=== PATIENT | female | born 1960 | race American Indian/Alaskan Native ===

== ENCOUNTER 2020-06-07 15:11 | Emergency (ER) | payer MEDICARE, MEDICAID ==
[2020-06-07 20:09] VITALS: BP 144/83
== END 2020-06-07 20:06 | disposition left against medical advice (07) ==
LOC: ED 15:11
DX: R06.02 Shortness of breath (principal); Z53.21 Procedure and treatment not carried out due to patient leaving prior to being seen by health care provider

== ENCOUNTER 2020-09-08 15:22 | Inpatient (IN) | payer MEDICARE ==
--- NOTE | 2020-09-08 15:45 | Event Note ---
ED Screening Note Date of service: 09/08/20 Time: 15:39 ED Screening Note: 60-year-old -[place] female presents to the emergency room complaining of abdominal pain x2 days nausea right lower quadrant back pain chills. Patient was recently seen here on 08/25/2020 07/20/1820 for small bowel obstruction with postop adhesions lysis. Past medical history of A. fib, CHF, hypertension, diabetes. This initial assessment/diagnostic orders/clinical plan/treatment(s) is/are subject to change based on patients health status, clinical progression and re- assessment by fellow clinical providers in the ED. Further treatment and workup at subsequent clinical providers discretion. Patient/guardian urged not to elope from the ED as their condition may be serious if not clinically assessed and managed. Initial orders include:
[2020-09-08 16:33] LABS: Basophils # (Auto) 0.1 K/mm3 (0.0-0.1); Basophils % (Auto) 0.8 % (0.0-1.8); Eosinophils # (Auto) 0.1 K/mm3 (0.0-0.4); Eosinophils % (Auto) 1.4 % (0.0-4.3); Hematocrit 43.9 % (30.3-42.9); Hemoglobin 14.5 gm/dl (10.1-14.3); Lymphocytes # (Auto) 1.1 K/mm3 (1.2-5.4); Lymphocytes % (Auto) 14.9 % (13.4-35.0); Mean Corpuscular HGB Conc 33 % (30-34); Mean Corpuscular Volume 92 fl (79-97); Monocytes # (Auto) 0.7 K/mm3 (0.0-0.8); Monocytes % (Auto) 9.7 % (0.0-7.3); Platelet Count 244 K/mm3 (140-440); Red Blood Count 4.75 M/mm3 (3.65-5.03); Red Cell Distribution Width 17.9 % (13.2-15.2)
[2020-09-08 16:41] LABS: Albumin 3.3 g/dL (3.9-5); Calcium 10.2 mg/dL (8.4-10.2)
[2020-09-08 16:43] LABS: INR 2.05 (0.87-1.13)
[2020-09-08 16:44] LABS: Partial Thromboplastin Time 34.3 Sec. (24.2-36.6)
--- NOTE | 2020-09-08 17:09 | Emergency Department Report ---
ED Abdominal Pain HPI - General Chief Complaint: Abdominal Pain Stated Complaint: PROBLEMS FROM SURGERY PUI?: No Time Seen by Provider: 09/08/20 17:01 Source: patient, RN/MD, RN notes reviewed, old records reviewed Mode of arrival: Wheelchair Limitations: Physical Limitation - History of Present Illness Initial Comments: Patient is a 60-year-old female that presents emergency room complaint abdominal pain. Patient dates her abdominal pain started 2 days ago. Patient states she had a generalized abdominal pain that is radiating to her back. Patient states she is also having nausea, vomiting, chills, body aches. Patient states she was here on 23 August for small bowel obstruction had surgery. Patient states she was discharged on the . Patient states that her pain is a 10 out of 10. Patient dates her pain is better with rest and worse with movement and palpation. Patient denies chest pain or shortness of breath. Patient denies recent travel. Patient denies recent international travel. Patient denies exposure to the novel coronavirus. Patient denies sick contacts. Patient denies cough. Patient denies diarrhea. Patient denies coming in contact with anybody with symptoms of the novel coronavirus. Patient states she has a history of COPD, congestive heart failure, diabetes, CAD, [place], HIV, hypertension. The surgeon to perform the surgery was Dr. Mora. Complaint: abdominal pain -: Sudden Location: diffuse Radiation: back Migration to: no migration Severity: severe Severity scale (0 -10): 10 Consistency: constant Improves With: rest Worsens With: movement Associated Symptoms: nausea, vomiting, chills. denies: diarrhea, constipation, dysuria, hematemesis, hematochezia, melena, hematuria, anorexia, syncope - Related Data Home Medications Medication Instructions Recorded Confirmed Last Taken Furosemide [Lasix] 40 mg PO BID 05/07/13 05/07/13 Unknown Gabapentin 300 mg PO 05/07/13 05/07/13 Unknown Insulin Glargine,Hum.rec.anlog 10 unit SQ QHS 05/07/13 05/07/13 Unknown [Lantus Solostar] Lopinavir/Ritonavir (Nf) [Kaletra 1 each PO BID 05/07/13 05/07/13 Unknown 200-50 mg (Nf)] Potassium 20 meq PO BID 05/07/13 05/07/13 Unknown Raltegravir Potassium [Isentress] 400 mg PO BID 05/07/13 05/07/13 Unknown Tenofovir Disoproxil Fumarate 300 mg PO QDAY 05/07/13 05/07/13 Unknown [Viread] Previous Rx's Medication Instructions Recorded Last Taken Type Hydrocodone Bit/Acetaminophen 1 - 2 each PO Q4-6H PRN #15 tablet 05/08/13 Unknown Rx [Lortab 5-500 Tablet] Digoxin [Lanoxin] 0.125 mg PO DAILY #30 09/01/20 Unknown Rx Rivaroxaban [Xarelto] 20 mg PO QDAY #30 tab 09/01/20 Unknown Rx amLODIPine 5 mg PO BID #60 09/01/20 Unknown Rx carvediloL [Coreg] 12.5 mg PO BID #60 tablet 09/01/20 Unknown Rx cloNIDine [Catapres] 0.1 mg PO BID #60 09/01/20 Unknown Rx oxyCODONE /ACETAMINOPHEN [Percocet 1 tab PO Q6H PRN #12 tablet 09/01/20 Unknown Rx 5/325 mg] Allergies Allergy/AdvReac Type Severity Reaction Status Date / Time No Known Allergies Allergy Verified 09/08/20 15:27 ED Review of Systems ROS: Stated complaint: PROBLEMS FROM SURGERY Other details as noted in HPI Constitutional: see HPI, chills. denies: fever Eyes: denies: eye pain, eye discharge, vision change ENT: denies: ear pain, throat pain Respiratory: denies: cough, shortness of breath, wheezing Cardiovascular: denies: chest pain, palpitations Endocrine: no symptoms reported Gastrointestinal: as per HPI, abdominal pain, nausea, vomiting. denies: diarrhea Genitourinary: denies: urgency, dysuria, discharge Musculoskeletal: denies: back pain, joint swelling, arthralgia Skin: denies: rash, lesions Neurological: denies: headache, weakness, paresthesias Psychiatric: denies: anxiety, depression Hematological/Lymphatic: denies: easy bleeding, easy bruising ED Past Medical Hx - Past Medical History Previous Medical History?: Yes Hx Hypertension: Yes Hx Heart Attack/AMI: Yes (~2006) Hx Congestive Heart Failure: Yes Hx Diabetes: Yes Hx Liver Disease: No Hx Renal Disease: Yes (worsening LA) Hx COPD: Yes (no exacerbation in >10yrs) Hx HIV: Yes Additional medical history: heart disease , HIV, atrial fibrillation - Surgical History Past Surgical History?: Yes Hx Pacemaker: Yes Hx Internal Defibrillator: Yes (denies hx of defibrillator shocks, battery changed within the last 10yrs) Hx Appendectomy: Yes Additional Surgical History: , tubal ligation, vaginal surgery/rectal surgery AIC - Family History Family history: no significant - Social History Smoking Status: Never Smoker Substance Use Type: None - Medications Home Medications: Home Medications Medication Instructions Recorded Confirmed Last Taken Type Furosemide [Lasix] 40 mg PO BID 05/07/13 05/07/13 Unknown History Gabapentin 300 mg PO 05/07/13 05/07/13 Unknown History Insulin Glargine,Hum.rec.anlog 10 unit SQ QHS 05/07/13 05/07/13 Unknown History [Lantus Solostar] Lopinavir/Ritonavir (Nf) [Kaletra 1 each PO BID 05/07/13 05/07/13 Unknown Hist ory 200-50 mg (Nf)] Potassium 20 meq PO BID 05/07/13 05/07/13 Unknown History Raltegravir Potassium [Isentress] 400 mg PO BID 05/07/13 05/07/13 Unknown History Tenofovir Disoproxil Fumarate 300 mg PO QDAY 05/07/13 05/07/13 Unknown History [Viread] Hydrocodone Bit/Acetaminophen 1 - 2 each PO Q4-6H PRN #15 tablet 05/08/13 Unknown Rx [Lortab 5-500 Tablet] Digoxin [Lanoxin] 0.125 mg PO DAILY #30 09/01/20 Unknown Rx Rivaroxaban [Xarelto] 20 mg PO QDAY #30 tab 09/01/20 Unknown Rx amLODIPine 5 mg PO BID #60 09/01/20 Unknown Rx carvediloL [Coreg] 12.5 mg PO BID #60 tablet 09/01/20 Unknown Rx cloNIDine [Catapres] 0.1 mg PO BID #60 09/01/20 Unknown Rx oxyCODONE /ACETAMINOPHEN [Percocet 1 tab PO Q6H PRN #12 tablet 09/01/20 Unknown Rx 5/325 mg] ED Physical Exam - General Limitations: Physical Limitation General appearance: alert, in no apparent distress - Head Head exam: Present: atraumatic, normocephalic - Eye Eye exam: Present: normal appearance - ENT ENT exam: Present: mucous membranes moist - Neck Neck exam: Present: normal inspection - Respiratory Respiratory exam: Present: normal lung sounds bilaterally. Absent: respiratory distress - Cardiovascular Cardiovascular Exam: Present: regular rate, normal rhythm. Absent: systolic murmur, diastolic murmur, rubs, gallop - GI/Abdominal GI/Abdominal exam: Present: soft, tenderness (Generalized abdominal tenderness to palpation.), normal bowel sounds, other (Midline surgical incision noted with harper and a purulent discharge to the inferior aspect.) - Extremities Exam Extremities exam: Present: normal inspection - Back Exam Back exam: Present: normal inspection - Neurological Exam Neurological exam: Present: alert, oriented X3 - Psychiatric Psychiatric exam: Present: normal affect, normal mood - Skin Skin exam: Present: warm, dry, intact, normal color. Absent: rash ED Course Vital Signs 09/08/20 09/08/20 15:27 18:00 Temperature 98.0 F 98.4 F Pulse Rate 92 H Respiratory 20 20 Rate Blood Pressure 130/78 Blood Pressure 126/75 [Left] O2 Sat by Pulse 99 98 Oximetry - Reevaluation(s) Reevaluation #1: Patient states the pain is better. Patient denies nausea 09/08/20 18:15 Reevaluation #2: I discussed all results with patient. I discussed plan of care with patient. Patient agrees with plan of care and admission. Patient to be admitted to the hospitalist service. 09/08/20 18:45 - Consultations Consultation #1: Hospitalist consulted for admission. Hospitalist to admit patient. 09/08/20 18:45 Consultation #2: I discussed case with surgery on-call, Dr. Guevara. Dr. Guevara wants patient to be admitted to the hospital service, n.p.o. and NG placed. 09/08/20 19:05 ED Medical Decision Making - Lab Data Result diagrams: 09/08/20 15:46 09/08/20 15:46 - Radiology Data Radiology results: report reviewed CT ABDOMEN AND PELVIS WITH CONTRAST INDICATION / CLINICAL INFORMATION: abd pain. recent surgery. chills.. TECHNIQUE: Axial CT images were obtained through the abdomen and pelvis after IV contrast. All CT scans at this location are performed using CT dose reduction for ALARA by means of automated exposure control. COMPARISON: 08/24/2020 compared. FINDINGS: LOWER CHEST: Pericardial effusion. Cardiac enlargement LIVER: No significant abnormality. GALLBLADDER: No significant abnormality. BILE DUCTS: No significant abnormality. PANCREAS: No significant abnormality. SPLEEN: Low density lesion developing within the spleen measuring 3.35 cm. ADRENALS: No significant abnormality. RIGHT KIDNEY and URETER: No significant abnormality. LEFT KIDNEY and URETER: No significant abnormality. STOMACH and SMALL BOWEL: Multiple dilated loops of small bowel are noted. COLON: No significant abnormality. APPENDIX: Not identified PERITONEUM: Small amount of free fluid present LYMPH NODES: No significant adenopathy. AORTA and ARTERIES: No significant abnormality. IVC and VEINS: No significant abnormality. URINARY BLADDER: No significant abnormality. REPRODUCTIVE ORGANS: No significant abnormality. ADDITIONAL FINDINGS: Surgical changes present anterior abdominal wall SKELETAL SYSTEM: No significant abnormality. IMPRESSION: 1. Abnormal appearance of the small bowel consistent with small bowel obstruction. 2. Low density lesion developing within the spleen etiology unclear, abscess should be considered 3. Pericardial effusion 4. Small amount of ascites - Medical Decision Making Patient is a 60-year-old female that presents emergency with complaints of abdominal pain, nausea, vomiting, fever, chills. Patient had a recent surgery for a small bowel obstruction. Patient has an anterior surgical site with harper. Patient had labs done which were essentially markable for renal insufficiency. Patient had a CT scan of the abdomen which showed a recurrent small bowel obstruction and an abscess formation. I discussed the case with the surgeon that did the surgery and he is currently being covered by Dr. Guevara, general surgery. I discussed the case with Dr. Sepulveda and Dr. Guevara wants the patient admitted to the hospital service, n.p.o. and NG placed. Patient admitted to the hospital service for further evaluation and treatment. Patient given IV fluids, IV Dilaudid and Zofran. Patient responded well and the pain improved after the Dilaudid. Patient then given Zosyn for antibiotic coverage. Critical care time documented due to the multiple reassessments, prolonged time at the bedside, interpretation of diagnostics and labs and discussion with c onsultants.. - Differential Diagnosis sbo, fever, abd pain, n/v. Critical Care Time: Yes Critical care time in (mins) excluding proc time.: 35 Critical care attestation.: If time is entered above; I have spent that time in minutes in the direct care of this critically ill patient, excluding procedure time. Critical Care Time: 35 minutes ED Disposition Clinical Impression: Chills, Intra-abdominal abscess post-procedure, Renal insufficiency, Small bowel obstruction Abdominal pain Qualifiers: Abdominal location: generalized Qualified Code(s): R10.84 - Generalized abdominal pain Fever Qualifiers: Fever type: unspecified Qualified Code(s): R50.9 - Fever, unspecified Disposition: DC-09 OP ADMIT IP TO THIS HOSP Is pt being admited?: Yes Does the pt Need Aspirin: No Condition: Critical Instructions: Abdominal Pain (ED) Time of Disposition: 19:11
[2020-09-08] MEDS ORDERED: SODIUM CHLORIDE 0.9% 500 ML 500 ML IV ONE (17:10)
[2020-09-08] MEDS ORDERED: ONDANSETRON 4 MG/2 ML INJ IV ONE (17:27)
[2020-09-08] MEDS ORDERED: HYDROmorphone 1 MG/1 ML INJ IV ONE (17:27)
--- NOTE | 2020-09-08 18:39 | Cat Scan Report ---
CT ABDOMEN AND PELVIS WITH CONTRAST INDICATION / CLINICAL INFORMATION: abd pain. recent surgery. chills.. TECHNIQUE: Axial CT images were obtained through the abdomen and pelvis after IV contrast. All CT scans at this location are performed using CT dose reduction for ALARA by means of automated exposure control. COMPARISON: 08/24/2020 compared. FINDINGS: LOWER CHEST: Pericardial effusion. Cardiac enlargement LIVER: No significant abnormality. GALLBLADDER: No significant abnormality. BILE DUCTS: No significant abnormality. PANCREAS: No significant abnormality. SPLEEN: Low density lesion developing within the spleen measuring 3.35 cm. ADRENALS: No significant abnormality. RIGHT KIDNEY and URETER: No significant abnormality. LEFT KIDNEY and URETER: No significant abnormality. STOMACH and SMALL BOWEL: Multiple dilated loops of small bowel are noted. COLON: No significant abnormality. APPENDIX: Not identified PERITONEUM: Small amount of free fluid present LYMPH NODES: No significant adenopathy. AORTA and ARTERIES: No significant abnormality. IVC and VEINS: No significant abnormality. URINARY BLADDER: No significant abnormality. REPRODUCTIVE ORGANS: No significant abnormality. ADDITIONAL FINDINGS: Surgical changes present anterior abdominal wall SKELETAL SYSTEM: No significant abnormality. IMPRESSION: 1. Abnormal appearance of the small bowel consistent with small bowel obstruction. 2. Low density lesion developing within the spleen etiology unclear, abscess should be considered 3. Pericardial effusion 4. Small amount of ascites Signer Name: Derrick Ferreira MD Signed: 09/08/2020 6:35 PM Workstation Name: [id number]
[2020-09-08] MEDS ORDERED: PIPERACIL/TAZOBACTA 4.5/NS 100 4.5 GM/100 ML VIAL IV ONE (18:43)
[2020-09-08 20:37] LABS: Bilirubin,Urine NEG (Negative); Blood,Urine NEG (Negative); Color,Urine Yellow (Yellow); Mucus,Urine FEW /HPF; Protein,Urine <15 mg/dL mg/dL (Negative); RBC,Urine < 1.0 /HPF (0.0-6.0); Urobilinogen,Urine < 2.0 mg/dL (<2.0); WBC,Urine < 1.0 /HPF (0.0-6.0)
--- NOTE | 2020-09-08 22:24 | XRay Report ---
ABDOMEN 1 VIEW 09/08/2020 9:04 PM INDICATION / CLINICAL INFORMATION: ng placement. COMPARISON: CT abdomen pelvis 09/08/2020 and abdominal radiograph 08/31/2020 FINDINGS: TUBES / LINES: Gastric tube crosses the gastroesophageal junction and terminates in the left upper qu adrant. Satisfactory appearance. Satisfactory appearance of the visualized left-sided pacing device. BOWEL GAS PATTERN: No significant abnormality. FREE AIR / EXTRALUMINAL GAS: None. ADDITIONAL FINDINGS: No significant additional findings. IMPRESSION: 1. Satisfactory appearance of the gastric tube. Signer Name: Tristen Fang MD Signed: 09/08/2020 10:20 PM Workstation Name: [id number]
[2020-09-09] MEDS ORDERED: METOCLOPRAMIDE 10 MG/2 ML INJ IV PRN (01:27)
[2020-09-09] MEDS ORDERED: ACETAMINOPHEN 325 MG TAB PO PRN (01:27)
[2020-09-09] MEDS ORDERED: SODIUM CHLORIDE 0.9% 1000 ML 1,000 ML IV SCH (01:30)
--- NOTE | 2020-09-09 01:34 | History and Physical Report ---
History of Present Illness Date of examination: 09/08/20 Date of admission: 09/08/20 19:11 Chief complaint: Abdominal pain for 3 days History of present illness: 60-year-old female recently admitted for small bowel obstruction discharged 1 week ago started having pain in the abdomen 3 days. Patient has been on clear liquids with 7 days. Pain worsens with drinking fluids. No vomiting present. Patient was discharged on the . Patient needs it 10 out of 10. Diffuse all over the abdomen. 41 exacerbating factor. Not eating anything or relieving factors. Pain is intermittent in nature. Patient has a history of HIV and diabetes and hypertension. No fever or chills. No exposure to coronavirus. - Past Medical History Previous Medical History?: Yes -- Hypertension: Yes --Heart Attack/AMI: Yes (~2006) --Congestive Heart Failure: Yes --Diabetes: Yes -- COPD: Yes --HIV: Yes Additional medical history: heart disease , HIV, atrial fibrillation - Surgical History Past Surgical History?: Yes --Pacemaker: Yes --Internal Defibrillator: Yes (denies hx of defibrillator shocks, battery changed within the last 10yrs) --Appendectomy: Yes Additional Surgical History: , tubal ligation, vaginal surgery/rectal surgery 2008, AICD - Family History Family history: no significant - Social History Smoking Status: Never Smoker Substance Use Type: None Review of Systems ROS: Stated complaint: PROBLEMS FROM SURGERY Other details as noted in HPI Constitutional: see HPI, chills. denies: fever Eyes: denies: eye pain, eye discharge, vision change ENT: denies: ear pain, throat pain Respiratory: denies: cough, shortness of breath, wheezing Cardiovascular: denies: chest pain, palpitations Endocrine: no symptoms reported Gastrointestinal: as per HPI, abdominal pain, nausea, vomiting. denies: diarrhea Genitourinary: denies: urgency, dysuria, discharge Musculoskeletal: denies: back pain, joint swelling, arthralgia Skin: denies: rash, lesions Neurological: denies: headache, weakness, paresthesias Psychiatric: denies: anxiety, depression Hematological/Lymphatic: denies: easy bleeding, easy bruising Medications and Allergies Allergies Allergy/AdvReac Type Severity Reaction Status Date / Time No Known Allergies Allergy Verified 09/08/20 15:27 Home Medications Medication Instructions Recorded Confirmed Last Taken Type Furosemide [Lasix] 40 mg PO BID 05/07/13 05/07/13 Unknown History Gabapentin 300 mg PO 05/07/13 05/07/13 Unknown History Insulin Glargine,Hum.rec.anlog 10 unit SQ QHS 05/07/13 05/07/13 Unknown History [Lantus Solostar] Lopinavir/Ritonavir (Nf) [Kaletra 1 each PO BID 05/07/13 05/07/13 Unknown History 200-50 mg (Nf)] Potassium 20 meq PO BID 05/07/13 05/07/13 Unknown History Raltegravir Potassium [Isentress] 400 mg PO BID 05/07/13 05/07/13 Unknown History Tenofovir Disoproxil Fumarate 300 mg PO QDAY 05/07/13 05/07/13 Unknown History [Viread] Hydrocodone Bit/Acetaminophen 1 - 2 each PO Q4-6H PRN #15 tablet 05/08/13 Unknown Rx [Lortab 5-500 Tablet] Digoxin [Lanoxin] 0.125 mg PO DAILY #30 09/01/20 Unknown Rx Rivaroxaban [Xarelto] 20 mg PO QDAY #30 tab 09/01/20 Unknown Rx amLODIPine 5 mg PO BID #60 09/01/20 Unknown Rx carvediloL [Coreg] 12.5 mg PO BID #60 tablet 09/01/20 Unknown Rx cloNIDine [Catapres] 0.1 mg PO BID #60 09/01/20 Unknown Rx oxyCODONE /ACETAMINOPHEN [Percocet 1 tab PO Q6H PRN #12 tablet 09/01/20 Unknown Rx 5/325 mg] Exam - Constitutional Vitals: Temp Pulse Resp BP Pulse Ox 98.4 F 85 20 118/58 98 09/08/20 18:00 09/09/20 00:23 09/09/20 00:23 09/09/20 00:23 09/09/20 00:23 General appearance: Present: no acute distress, well-nourished - EENT Eyes: Present: PERRL ENT: hearing intact, clear oral mucosa - Neck Neck: Present: supple, normal ROM - Respiratory Respiratory effort: normal Respiratory: bilateral: CTA - Cardiovascular Heart rate: 78 Rhythm: regular Heart Sounds: Present: S1 & S2. Absent: rub, click - Extremities Extremities: pulses symmetrical, No edema Peripheral Pulses: within normal limits - Abdominal General gastrointestinal: Present: soft, non-tender, distended, absent bowel sounds Localized gastrointestinal: tender: diffuse Female genitourinary: Present: normal - Rectal Rectal Exam: deferred - Integumentary Integumentary: Present: clear, warm, dry - Musculoskeletal Musculoskeletal: gait normal, strength equal bilaterally - Psychiatric Psychiatric: appropriate mood/affect, intact judgment & insight - Neurologic Neurologic: CNII-XII intact, moves all extremities - Allied Health Allied health notes reviewed: nursing, case management Results - Labs CBC & Chem 7: 09/09/20 05:02 09/08/20 15:46 Labs: Laboratory Last Values WBC 7.4 K/mm3 (4.5-11.0) 09/08/20 15:46 RBC 4.75 M/mm3 (3.65-5.03) 09/08/20 15:46 Hgb 14.5 gm/dl (10.1-14.3) H 09/08/20 15:46 Hct 43.9 % (30.3-42.9) H 09/08/20 15:46 MCV 92 fl (79-97) 09/08/20 15:46 MCH 31 pg (28-32) 09/08/20 15:46 MCHC 33 % (30-34) 09/08/20 15:46 RDW 17.9 % (13.2-15.2) H 09/08/20 15:46 Plt Count 244 K/mm3 (140-440) 09/08/20 15:46 Lymph % (Auto) 14.9 % (13.4-35.0) 09/08/20 15:46 [place] % (Auto) 9.7 % (0.0-7.3) H 09/08/20 15:46 Eos % (Auto) 1.4 % (0.0-4.3) 09/08/20 15:46 Baso % (Auto) 0.8 % (0.0-1.8) 09/08/20 15:46 Lymph # (Auto) 1.1 K/mm3 (1.2-5.4) L 09/08/20 15:46 [place] # (Auto) 0.7 K/mm3 (0.0-0.8) 09/08/20 15:46 Eos # (Auto) 0.1 K/mm3 (0.0-0.4) 09/08/20 15:46 Baso # (Auto) 0.1 K/mm3 (0.0-0.1) 09/08/20 15:46 Seg Neutrophils % 73.2 % (40.0-70.0) H 09/08/20 15:46 Seg Neutrophils # 5.4 K/mm3 (1.8-7.7) 09/08/20 15:46 PT 23.3 Sec. (12.2-14.9) H 09/08/20 15:46 INR 2.05 (0.87-1.13) H 09/08/20 15:46 APTT 34.3 Sec. (24.2-36.6) 09/08/20 15:46 Sodium 142 mmol/L (137-145) 09/08/20 15:46 Potassium 4.2 mmol/L (3.6-5.0) 09/08/20 15:46 Chloride 98.2 mmol/L (98-107) 09/08/20 15:46 Carbon Dioxide 36 mmol/L (22-30) H 09/08/20 15:46 Anion Gap 12 mmol/L 09/08/20 15:46 BUN 21 mg/dL (7-17) H 09/08/20 15:46 Creatinine 1.4 mg/dL (0.6-1.2) H 09/08/20 15:46 Estimated GFR 47 ml/min 09/08/20 15:46 BUN/Creatinine Ratio 15 % 09/08/20 15:46 Glucose 193 mg/dL (65-100) H 09/08/20 15:46 Lactic Acid 1.20 mmol/L (0.7-2.0) 09/08/20 15:46 Calcium 10.2 mg/dL (8.4-10.2) 09/08/20 15:46 Phosphorus 3.10 mg/dL (2.5-4.5) 09/08/20 15:46 Magnesium 1.50 mg/dL (1.7-2.3) L 09/08/20 15:46 Total Bilirubin 1.10 mg/dL (0.1-1.2) 09/08/20 15:46 AST 16 units/L (5-40) 09/08/20 15:46 ALT 9 units/L (7-56) 09/08/20 15:46 Alkaline Phosphatase 124 units/L (35-129) 09/08/20 15:46 Total Protein 7.7 g/dL (6.3-8.2) 09/08/20 15:46 Albumin 3.3 g/dL (3.9-5) L 09/08/20 15:46 Albumin/Globulin Ratio 0.8 % 09/08/20 15:46 Lipase 36 units/L (13-60) 09/08/20 15:46 Urine Color Yellow (Yellow) 09/08/20 20:02 Urine Turbidity Clear (Clear) 09/08/20 20:02 Urine pH 5.0 (5.0-7.0) 09/08/20 20:02 Ur Specific [place] 1.020 (1.003-1.030) 09/08/20 20:02 Urine Protein <15 mg/dl mg/dL (Negative) 09/08/20 20:02 Urine Glucose (UA) Neg mg/dL (Negative) 09/08/20 20:02 Urine Ketones Neg mg/dL (Negative) 09/08/20 20:02 Urine Blood Neg (Negative) 09/08/20 20:02 Urine Nitrite Neg (Negative) 09/08/20 20:02 Urine Bilirubin Neg (Negative) 09/08/20 20:02 Urine Urobilinogen < 2.0 mg/dL (<2.0) 09/08/20 20:02 Ur Leukocyte Esterase Neg (Negative) 09/08/20 20:02 Urine WBC (Auto) < 1.0 /HPF (0.0-6.0) 09/08/20 20:02 Urine RBC (Auto) < 1.0 /HPF (0.0-6.0) 09/08/20 20:02 U Epithel Cells (Auto) < 1.0 /HPF (0-13.0) 09/08/20 20:02 Urine Mucus Few /HPF 09/08/20 20:02 - Imaging and Cardiology Imaging and Cardiology: Abdominal CAT scan IMPRESSION: 1. Abnormal appearance of the small bowel consistent with small bowel obstruction. 2. Low density lesion developing within the spleen etiology unclear, abscess should be considered 3. Pericardial effusion 4. Small amount of ascites Assessment and Plan Advance Directives: Yes (Full code) VTE prophylaxis?: Chemical Plan of care discussed with patient/family: Yes - Patient Problems (1) Small bowel obstruction Current Visit: Yes Status: Acute Plan to address problem: N.p.o. for now NG tube for low Gomco suction Surgery consult requested (2) LA (acute kidney injury) Current Visit: No Status: Acute Plan to address problem: IV fluids for now and recheck creatinine (3) HIV (human immunodeficiency virus infection) Current Visit: Yes Status: Chronic Qualifiers: HIV symptom status: unspecified Qualified Code(s): B20 - Human immunodeficiency virus [HIV] disease Plan to address problem: Hold antiretrovirals for now (4) Hypertension Current Visit: No Status: Chronic Qualifiers: Hypertension type: essential hypertension Qualified Code(s): I10 - Essential (primary) hypertension Plan to address problem: Patient initiated on Catapres patch TTS 3 q. weekly (5) IDDM (insulin dependent diabetes mellitus) Current Visit: No Status: Chronic Plan to address problem: Coverage of insulin for now (6) DVT prophylaxis Current Visit: Yes Status: Acute Plan to address problem: On heparin and GI prophylaxis
[2020-09-09] MEDS ORDERED: cloNIDine TTS 0.3 MG/24 HR PATCH TD SCH (02:00)
[2020-09-09] MEDS: HYDROmorphone 1 MG/1 ML INJ IV PRN ×2 (02:13→22:00)
[2020-09-09] MEDS: ONDANSETRON 4 MG/2 ML INJ IV PRN (02:14)
[2020-09-09] MEDS: PIPERACIL/TAZOBACTA 4.5/NS 100 4.5 GM/100 ML VIAL IV SCH ×3 (04:38→20:00)
[2020-09-09] MEDS: MORPHINE 2 MG/1 ML INJ IV PRN (06:04)
[2020-09-09 07:34] LABS: Hemoglobin 13.3 gm/dl (10.1-14.3); Mean Corpuscular Volume 92 fl (79-97); Red Blood Count 4.36 M/mm3 (3.65-5.03)
[2020-09-09 07:35] LABS: Basophils % (Auto) 0.7 % (0.0-1.8); Eosinophils # (Auto) 0.1 K/mm3 (0.0-0.4); Eosinophils % (Auto) 1.5 % (0.0-4.3); Lymphocytes # (Auto) 1.1 K/mm3 (1.2-5.4); Lymphocytes % (Auto) 15.9 % (13.4-35.0); Mean Corpuscular HGB Conc 33 % (30-34); Monocytes # (Auto) 0.6 K/mm3 (0.0-0.8); Monocytes % (Auto) 8.7 % (0.0-7.3); Platelet Count 228 K/mm3 (140-440); Red Cell Distribution Width 17.6 % (13.2-15.2)
--- NOTE | 2020-09-09 08:51 | Progress Note ---
Assessment and Plan Assessment and plan: -- Small bowel obstruction Current Visit: Yes Status: Acute Plan to address problem: N.p.o. status, low intermittent suction IV fluids, supportive care Surgery evaluated the patient --LA (acute kidney injury) Current Visit: No Status: Acute Plan to address problem: Vasomotor nephropathy , gentle IV hydration Monitor renal function, avoid nephrotoxins --History of HIV (human immunodeficiency virus infection) Current Visit: Yes Status: Chronic Plan to address problem: Hold antiretrovirals for now ID consult if needed -- Hypertension Current Visit: No Status: Chronic Plan to address problem: Patient initiated on Catapres patch TTS 3 q. weekly Closely monitor blood pressures Continue current antihypertensives and as needed hydralazine --Type II IDDM (insulin dependent diabetes mellitus) Current Visit: No Status: Chronic Plan to address problem: Accu-Chek sliding scale coverage Patient is n.p.o. status, ADA diet when able to take oral Check A1c --Morbid obesity ; BMI 41.6 Current Visit: No Status: Chronic. Plan to address problem: Patient needs dietary modification, exercise as tolerated, lifestyle changes, and weight reduction when medically stable DVT prophylaxis Current Visit: Yes Status: Acute Plan to address problem: On heparin and GI prophylaxis 09/09/2020; small bowel obstruction, n.p.o. status NG tube placement, intermittent suction, supportive care History Interval history: I seen and examined the patient at the bedside Patient's chart and medications reviewed Patient was admitted with small bowel obstruction Has [place] with intermittent suction Surgery evaluated the patient Vital signs noted Hospitalist Physical - Constitutional Vitals: Temp Pulse Resp BP Pulse Ox 98.2 F 79 16 116/79 94 09/09/20 07:05 09/09/20 07:05 09/09/20 07:05 09/09/20 07:05 09/09/20 07:05 General appearance: Present: no acute distress, well-nourished - EENT Eyes: Present: PERRL, EOM intact - Neck Neck: Present: supple, normal ROM - Respiratory Respiratory effort: normal, labored Respiratory: bilateral: diminished, negative: rales, rhonchi, wheezing - Cardiovascular Rhythm: regular Heart Sounds: Present: S1 & S2 - Extremities Extremities: no ischemia Extremity abnormal: edema - Abdominal General gastrointestinal: soft, non-tender, non-distended, normal bowel sounds - Integumentary Integumentary: Present: clear, warm - Psychiatric Psychiatric: appropriate mood/affect, cooperative - Neurologic Neurologic: CNII-XII intact, moves all extremities Results - Labs CBC & Chem 7: 09/09/20 05:02 09/09/20 05:02 Labs: Laboratory Last Values WBC 6.9 K/mm3 (4.5-11.0) 09/09/20 05:02 RBC 4.36 M/mm3 (3.65-5.03) 09/09/20 05:02 Hgb 13.3 gm/dl (10.1-14.3) 09/09/20 05:02 Hct 40.0 % (30.3-42.9) 09/09/20 05:02 MCV 92 fl (79-97) 09/09/20 05:02 MCH 31 pg (28-32) 09/09/20 05:02 MCHC 33 % (30-34) 09/09/20 05:02 RDW 17.6 % (13.2-15.2) H 09/09/20 05:02 Plt Count 228 K/mm3 (140-440) 09/09/20 05:02 Lymph % (Auto) 15.9 % (13.4-35.0) 09/09/20 05:02 [place] % (Auto) 8.7 % (0.0-7.3) H 09/09/20 05:02 Eos % (Auto) 1.5 % (0.0-4.3) 09/09/20 05:02 Baso % (Auto) 0.7 % (0.0-1.8) 09/09/20 05:02 Lymph # (Auto) 1.1 K/mm3 (1.2-5.4) L 09/09/20 05:02 [place] # (Auto) 0.6 K/mm3 (0.0-0.8) 09/09/20 05:02 Eos # (Auto) 0.1 K/mm3 (0.0-0.4) 09/09/20 05:02 Baso # (Auto) 0.0 K/mm3 (0.0-0.1) 09/09/20 05:02 Seg Neutrophils % 73.2 % (40.0-70.0) H 09/09/20 05:02 Seg Neutrophils # 5.1 K/mm3 (1.8-7.7) 09/09/20 05:02 PT 23.3 Sec. (12.2-14.9) H 09/08/20 15:46 INR 2.05 (0.87-1.13) H 09/08/20 15:46 APTT 34.3 Sec. (24.2-36.6) 09/08/20 15:46 Sodium 142 mmol/L (137-145) 09/08/20 15:46 Potassium 4.2 mmol/L (3.6-5.0) 09/08/20 15:46 Chloride 98.2 mmol/L (98-107) 09/08/20 15:46 Carbon Dioxide 36 mmol/L (22-30) H 09/08/20 15:46 Anion Gap 12 mmol/L 09/08/20 15:46 BUN 21 mg/dL (7-17) H 09/08/20 15:46 Creatinine 1.4 mg/dL (0.6-1.2) H 09/08/20 15:46 Estimated GFR 47 ml/min 09/08/20 15:46 BUN/Creatinine Ratio 15 % 09/08/20 15:46 Glucose 193 mg/dL (65-100) H 09/08/20 15:46 Lactic Acid 1.20 mmol/L (0.7-2.0) 09/08/20 15:46 Calcium 10.2 mg/dL (8.4-10.2) 09/08/20 15:46 Phosphorus 3.10 mg/dL (2.5-4.5) 09/08/20 15:46 Magnesium 1.50 mg/dL (1.7-2.3) L 09/08/20 15:46 Total Bilirubin 1.10 mg/dL (0.1-1.2) 09/08/20 15:46 AST 16 units/L (5-40) 09/08/20 15:46 ALT 9 units/L (7-56) 09/08/20 15:46 Alkaline Phosphatase 124 units/L (35-129) 09/08/20 15:46 Total Protein 7.7 g/dL (6.3-8.2) 09/08/20 15:46 Albumin 3.3 g/dL (3.9-5) L 09/08/20 15:46 Albumin/Globulin Ratio 0.8 % 09/08/20 15:46 Lipase 36 units/L (13-60) 09/08/20 15:46 Urine Color Yellow (Yellow) 09/08/20 20:02 Urine Turbidity Clear (Clear) 09/08/20 20:02 Urine pH 5.0 (5.0-7.0) 09/08/20 20:02 Ur Specific [place] 1.020 (1.003-1.030) 09/08/20 20:02 Urine Protein <15 mg/dl mg/dL (Negative) 09/08/20 20:02 Urine Glucose (UA) Neg mg/dL (Negative) 09/08/20 20:02 Urine Ketones Neg mg/dL (Negative) 09/08/20 20:02 Urine Blood Neg (Negative) 09/08/20 20:02 Urine Nitrite Neg (Negative) 09/08/20 20:02 Urine Bilirubin Neg (Negative) 09/08/20 20:02 Urine Urobilinogen < 2.0 mg/dL (<2.0) 09/08/20 20:02 Ur Leukocyte Esterase Neg (Negative) 09/08/20 20:02 Urine WBC (Auto) < 1.0 /HPF (0.0-6.0) 09/08/20 20:02 Urine RBC (Auto) < 1.0 /HPF (0.0-6.0) 09/08/20 20:02 U Epithel Cells (Auto) < 1.0 /HPF (0-13.0) 09/08/20 20:02 Urine Mucus Few /HPF 09/08/20 20:02 Kam/IV: Voiding Method Toilet Active Medications - Current Medications Current Medications: Generic Name Dose Route Start Last Admin Trade Name Freq PRN Reason Stop Dose Admin Acetaminophen 650 mg 09/09/20 01:27 Acetaminophen 325 Mg Tab PO Q4H PRN Pain MILD(1-3)/Fever >100.5/VELÁSQUEZ Clonidine HCl 0.3 mg 09/09/20 02:00 09/09/20 02:30 Clonidine Tts 0.3 Mg/24 Hr Patch TD 0.3 mg Fr FERNY Administration Famotidine 20 mg 09/09/20 10:00 Famotidine 20 Mg/2 Ml Inj IV BID FERNY Hydromorphone HCl 0.5 mg 09/09/20 01:27 09/09/20 02:13 Hydromorphone 1 Mg/1 Ml Inj IV 0.5 mg Q3H PRN Administration Pain , Severe (7-10) Sodium Chloride 1,000 mls @ 100 mls/hr 09/09/20 01:30 Nacl 0.9% 1000 Ml IV DIRECT FERNY Piperacillin Sod/Tazobactam Sod 4.5 gm in 100 mls @ 200 mls/hr 09/09/20 04:00 09/09/20 04:38 Zosyn/Ns 4.5gm/100ml IV 200 mls/hr Q8H FERNY Administration Protocol Insulin Human Lispro 0 unit 09/09/20 08:00 Insulin Lispro 100 Unit/Ml SUB-Q Q6HR FERNY Protocol Metoclopramide HCl 10 mg 09/09/20 01:27 Metoclopramide 10 Mg/2 Ml Inj IV Q6H PRN Nausea And Vomiting Morphine Sulfate 2 mg 09/09/20 01:27 09/09/20 06:04 Morphine 2 Mg/1 Ml Inj IV 2 mg Q4H PRN Administration Pain, Moderate (4-6) Ondansetron HCl 4 mg 09/09/20 01:27 09/09/20 02:14 Ondansetron 4 Mg/2 Ml Inj IV 4 mg Q3H PRN Administration Nausea And Vomiting Sodium Chloride 10 ml 09/09/20 10:00 Sodium Chloride 0.9% 10 Ml Flush Syringe IV BID FERNY Sodium Chloride 10 ml 09/09/20 01:27 Sodium Chloride 0.9% 10 Ml Flush Syringe IV PRN PRN LINE FLUSH
[2020-09-09] MEDS: INSULIN LISPRO 100 UNIT/ML SUB-Q SCH (09:21)
[2020-09-09] MEDS: FAMOTIDINE 20 MG/2 ML INJ IV SCH ×2 (10:19→22:00)
[2020-09-09 10:20] LABS: Albumin 2.9 g/dL (3.9-5); Calcium 9.6 mg/dL (8.4-10.2)
--- NOTE | 2020-09-09 14:20 | Consultation ---
History of Present Illness Consult date: 09/09/20 Reason for consult: abdominal pain Chief complaint: abdominal pain - History of present illness History of present illness: 60 yo F s/p recent admission at [facility] for SBO for which she underwent exlap, EDDIE on 08/26/[address] Mora. She presents to ER with c/o diffuse, crampy, intermittent abdominal pain for the last 2 days. She states when she was discharged from the hospital on 09/01/20 she was doing well with a liquid diet. 2 days ago, she advanced to a soft diet per her discharge instructions. After this she started to experience worsening abdominal pain and nausea. She also c/o vomiting which has since resolved. She states the pain is mild compared to her initial admission for SBO. Pain is made worse by moving. It is alleviated with IV pain medication. She did not feel the oral pain medications were helping her. No f/c. No cp, sob. She has been having BMs and passing lots of flatus. After NGT was placed, her abdominal pain significantly improved. Past History Past Medical History: atrial fib, diabetes, heart failure, HIV/AIDS, other (obesity) Past Surgical History: appendectomy, , bowel surgery (08/26/20 - exlap, EDDIE), Other (tubal ligation, AICD) Social history: no significant social history Family history: no significant family history Medications and Allergies Allergies Allergy/AdvReac Type Severity Reaction Status Date / Time No Known Allergies Allergy Verified 09/08/20 15:27 Home Medications Medication Instructions Recorded Confirmed Last Taken Type Furosemide [Lasix] 40 mg PO BID 05/07/13 05/07/13 Unknown History Gabapentin 300 mg PO 05/07/13 05/07/13 Unknown History Insulin Glargine,Hum.rec.anlog 10 unit SQ QHS 05/07/13 05/07/13 Unknown History [Lantus Solostar] Lopinavir/Ritonavir (Nf) [Kaletra 1 each PO BID 05/07/13 05/07/13 Unknown Hist ory 200-50 mg (Nf)] Potassium 20 meq PO BID 05/07/13 05/07/13 Unknown History Raltegravir Potassium [Isentress] 400 mg PO BID 05/07/13 05/07/13 Unknown History Tenofovir Disoproxil Fumarate 300 mg PO QDAY 05/07/13 05/07/13 Unknown History [Viread] Hydrocodone Bit/Acetaminophen 1 - 2 each PO Q4-6H PRN #15 tablet 05/08/13 Unknown Rx [Lortab 5-500 Tablet] Digoxin [Lanoxin] 0.125 mg PO DAILY #30 09/01/20 Unknown Rx Rivaroxaban [Xarelto] 20 mg PO QDAY #30 tab 09/01/20 Unknown Rx amLODIPine 5 mg PO BID #60 09/01/20 Unknown Rx carvediloL [Coreg] 12.5 mg PO BID #60 tablet 09/01/20 Unknown Rx cloNIDine [Catapres] 0.1 mg PO BID #60 09/01/20 Unknown Rx oxyCODONE /ACETAMINOPHEN [Percocet 1 tab PO Q6H PRN #12 tablet 09/01/20 Unknown Rx 5/325 mg] Active Meds: Active Medications Acetaminophen (Acetaminophen 325 Mg Tab) 650 mg PO Q4H PRN PRN Reason: Pain MILD(1-3)/Fever >100.5/VELÁSQUEZ Clonidine HCl (Clonidine Tts 0.3 Mg/24 Hr Patch) 0.3 mg TD Fr FERNY Last Admin: 09/09/20 02:30 Dose: 0.3 mg Documented by: Famotidine (Famotidine 20 Mg/2 Ml Inj) 20 mg IV BID FERNY Hydromorphone HCl (Hydromorphone 1 Mg/1 Ml Inj) 0.5 mg IV Q3H PRN PRN Reason: Pain , Severe (7-10) Last Admin: 09/09/20 02:13 Dose: 0.5 mg Documented by: Sodium Chloride (Nacl 0.9% 1000 Ml) 1,000 mls @ 100 mls/hr IV DIRECT FERNY Piperacillin Sod/Tazobactam Sod (Zosyn/Ns 4.5gm/100ml) 4.5 gm in 100 mls @ 200 mls/hr IV Q8H FERNY; Protocol Last Admin: 09/09/20 04:38 Dose: 200 mls/hr Documented by: Insulin Human Lispro (Insulin Lispro 100 Unit/Ml) 0 unit SUB-Q Q6HR FERNY; Protocol Metoclopramide HCl (Metoclopramide 10 Mg/2 Ml Inj) 10 mg IV Q6H PRN PRN Reason: Nausea And Vomiting Morphine Sulfate (Morphine 2 Mg/1 Ml Inj) 2 mg IV Q4H PRN PRN Reason: Pain, Moderate (4-6) Last Admin: 09/09/20 06:04 Dose: 2 mg Documented by: Ondansetron HCl (Ondansetron 4 Mg/2 Ml Inj) 4 mg IV Q3H PRN PRN Reason: Nausea And Vomiting Last Admin: 09/09/20 02:14 Dose: 4 mg Documented by: Sodium Chloride (Sodium Chloride 0.9% 10 Ml Flush Syringe) 10 ml IV BID FERNY Sodium Chloride (Sodium Chloride 0.9% 10 Ml Flush Syringe) 10 ml IV PRN PRN PRN Reason: LINE FLUSH Review of Systems All systems: negative (10 pt ROS performed and negative except for that listed in HPI) Exam Vital Signs Temp Pulse Resp BP Pulse Ox 98.0 F 92 H 20 130/78 99 09/08/20 15:27 09/08/20 15:27 09/08/20 15:27 09/08/20 15:27 09/08/20 15:27 Narrative exam: Gen: AAOx3. NAD. Tearful. ENT: no scleral icterus. NGT with light brown output CV: S1, S2+ Resp: even and unlabored Abd: soft, NT, ND. Midline incision with scab formation. No drainage. Healing well. [place] in place Ext: no c/c/e Results - Labs 09/09/20 05:02 09/09/20 05:02 Abnormal lab results 09/08/20 09/08/20 09/08/20 Range/Units 15:46 15:46 15:46 Hgb 14.5 H (10.1-14.3) gm/dl Hct 43.9 H (30.3-42.9) % RDW 17.9 H (13.2-15.2) % [place] % (Auto) 9.7 H (0.0-7.3) % Lymph # (Auto) 1.1 L (1.2-5.4) K/mm3 Seg Neutrophils % 73.2 H (40.0-70.0) % PT 23.3 H (12.2-14.9) Sec. INR 2.05 H (0.87-1.13) Chloride (98-107) mmol/L Carbon Dioxide 36 H (22-30) mmol/L BUN 21 H (7-17) mg/dL Creatinine 1.4 H (0.6-1.2) mg/dL Glucose 193 H (65-100) mg/dL POC Glucose (70-105) mg/dL Magnesium (1.7-2.3) mg/dL Albumin 3.3 L (3.9-5) g/dL 09/08/20 09/09/20 09/09/20 Range/Units 15:46 05:02 05:02 Hgb (10.1-14.3) gm/dl Hct (30.3-42.9) % RDW 17.6 H (13.2-15.2) % [place] % (Auto) 8.7 H (0.0-7.3) % Lymph # (Auto) 1.1 L (1.2-5.4) K/mm3 Seg Neutrophils % 73.2 H (40.0-70.0) % PT (12.2-14.9) Sec. INR (0.87-1.13) Chloride 96.8 L (98-107) mmol/L Carbon Dioxide (22-30) mmol/L BUN 18 H (7-17) mg/dL Creatinine 1.3 H (0.6-1.2) mg/dL Glucose 157 H (65-100) mg/dL POC Glucose (70-105) mg/dL Magnesium 1.50 L (1.7-2.3) mg/dL Albumin 2.9 L (3.9-5) g/dL 09/09/20 Range/Units 11:46 Hgb (10.1-14.3) gm/dl Hct (30.3-42.9) % RDW (13.2-15.2) % [place] % (Auto) (0.0-7.3) % Lymph # (Auto) (1.2-5.4) K/mm3 Seg Neutrophils % (40.0-70.0) % PT (12.2-14.9) Sec. INR (0.87-1.13) Chloride (98-107) mmol/L Carbon Dioxide (22-30) mmol/L BUN (7-17) mg/dL Creatinine (0.6-1.2) mg/dL Glucose (65-100) mg/dL POC Glucose 152 H (70-105) mg/dL Magnesium (1.7-2.3) mg/dL Albumin (3.9-5) g/dL Diabetes panel 09/08/20 09/09/20 Range/Units 15:46 05:02 Sodium 142 141 (137-145) mmol/L Potassium 4.2 4.5 (3.6-5.0) mmol/L Chloride 98.2 96.8 L (98-107) mmol/L Carbon Dioxide 36 H 29 D (22-30) mmol/L BUN 21 H 18 H (7-17) mg/dL Creatinine 1.4 H 1.3 H (0.6-1.2) mg/dL Glucose 193 H 157 H (65-100) mg/dL Calcium 10.2 9.6 (8.4-10.2) mg/dL AST 16 10 (5-40) units/L ALT 9 10 (7-56) units/L Alkaline Phosphatase 124 111 (35-129) units/L Total Protein 7.7 6.9 (6.3-8.2) g/dL Albumin 3.3 L 2.9 L (3.9-5) g/dL Calcium panel 09/08/20 09/08/20 09/09/20 Range/Units 15:46 15:46 05:02 Calcium 10.2 9.6 (8.4-10.2) mg/dL Phosphorus 3.10 (2.5-4.5) mg/dL Albumin 3.3 L 2.9 L (3.9-5) g/dL Pituitary panel 09/08/20 09/09/20 Range/Units 15:46 05:02 Sodium 142 141 (137-145) mmol/L Potassium 4.2 4.5 (3.6-5.0) mmol/L Chloride 98.2 96.8 L (98-107) mmol/L Carbon Dioxide 36 H 29 D (22-30) mmol/L BUN 21 H 18 H (7-17) mg/dL Creatinine 1.4 H 1.3 H (0.6-1.2) mg/dL Glucose 193 H 157 H (65-100) mg/dL Calcium 10.2 9.6 (8.4-10.2) mg/dL Adrenal panel 09/08/20 09/09/20 Range/Units 15:46 05:02 Sodium 142 141 (137-145) mmol/L Potassium 4.2 4.5 (3.6-5.0) mmol/L Chloride 98.2 96.8 L (98-107) mmol/L Carbon Dioxide 36 H 29 D (22-30) mmol/L BUN 21 H 18 H (7-17) mg/dL Creatinine 1.4 H 1.3 H (0.6-1.2) mg/dL Glucose 193 H 157 H (65-100) mg/dL Calcium 10.2 9.6 (8.4-10.2) mg/dL Total Bilirubin 1.10 1.00 (0.1-1.2) mg/dL AST 16 10 (5-40) units/L ALT 9 10 (7-56) units/L Alkaline Phosphatase 124 111 (35-129) units/L Total Protein 7.7 6.9 (6.3-8.2) g/dL Albumin 3.3 L 2.9 L (3.9-5) g/dL - Imaging CT scan - abdomen: report reviewed, image reviewed CT scan - pelvis: report reviewed, image reviewed Assessment and Plan 60 yo F with abdominal pain, Hx of exlap, EDDIE for SBO on 08/26/[address] Mora Pt clinically stable and not obstructed. She is having flatus and BMs. NGT output is gastric. Ct scan images and report reviewed. Plan: 1. continue NGT for now - LIWS 2. IVF 3. Prn pain control 4. NPO except ice chips 5. OOB/ambulate 6. DVT ppx 7. IS/pulm toilet 8. dulcolax suppository today. Will institute PO bowel regimen when patient hieu PO 9. No indication for antibiotics from surgical standpoint 10. Will follow. Plan discussed in detail with patient. Thank you, please call with questions.
[2020-09-09] MEDS: HEPARIN 5,000 UNIT/1 ML VIAL SUB-Q SCH (22:00)
[2020-09-10] MEDS: PIPERACIL/TAZOBACTA 4.5/NS 100 4.5 GM/100 ML VIAL IV SCH (04:00)
[2020-09-10] MEDS: INSULIN LISPRO 100 UNIT/ML SUB-Q SCH ×3 (06:00→14:42)
[2020-09-10] MEDS: HEPARIN 5,000 UNIT/1 ML VIAL SUB-Q SCH ×3 (06:07→22:00)
[2020-09-10 06:28] LABS: Calcium 8.6 mg/dL (8.4-10.2)
[2020-09-10] MEDS: HYDROmorphone 1 MG/1 ML INJ IV PRN (06:44)
[2020-09-10] MEDS ORDERED: MAGNESIUM SULFATE 2 GM/50 ML BAG IV ONE (10:30)
[2020-09-10] MEDS ORDERED: POTASSIUM PHOSPHATE 30 MMOL in SODIUM CHLORIDE 0.9% 500 ML 500 ML IV ONE (10:31)
--- NOTE | 2020-09-10 10:36 | Progress Note ---
Assessment and Plan Assessment and plan: --Hypophosphatemia; Supplement with IV K-Phos 30 mEq Monitor electrolytes --hypomagnesemia Supplement Magnesium sulfate IV 2 g. Monitor electrolytes -- Small bowel obstruction N.p.o. status, low intermittent suction IV fluids, supportive care Surgery evaluated the patient --LA (acute kidney injury) Vasomotor nephropathy , gentle IV hydration Monitor renal function, avoid nephrotoxins --History of HIV Hold antiretrovirals for now ID consult if needed -- Hypertension Patient initiated on Catapres patch TTS 3 q. weekly Closely monitor blood pressures Continue current antihypertensives and as needed hydralazine --Type II IDDM (insulin dependent diabetes mellitus) Accu-Chek sliding scale coverage Patient is n.p.o. status, ADA diet when able to take oral Check A1c --Morbid obesity ; BMI 41.6 Patient needs dietary modification, exercise as tolerated, lifestyle changes, and weight reduction when medically stable --Severe malnutrition /hypoalbuminemia albumin 2.9, secondary to underlying disease process Supportive care, nutrition consult if needed --DVT prophylaxis On heparin and GI prophylaxis Surgery recommendations noted and appreciated We will closely monitor the patient and adjust management as needed Plan of care reviewed with the patient and her nurse Brief history; 60 yo F s/p recent admission at [facility] for SBO ,s/p exlap, lysis of adhesions on 08/26/[address] Mora discharged on 09/01/2020. Was admitted through emergency room with abdominal pain, initial work-up in the ED is consistent with small bowel obstruction, evaluated by surgeon, placed NG tube intermittent suction, with significant improvement of symptoms. Patient has been having flatus and bowel movements. 09/09/2020; small bowel obstruction, n.p.o. status NG tube placement, intermittent suction, supportive care 09/10/2020; Patient is having flatus and bowel movements, continue n.p.o. status Hypomagnesemia, hypophosphatemia treated with IV mag self, and IV K-Phos Closely monitor electrolytes, possible removal of NG tube and starting clear liquids tomorrow If patient is stable per surgery History Interval history: I have seen and examined the patient at the bedside Patient's chart and medications reviewed Patient had flatus and bowel movement Patient feels better than yesterday Vital signs noted Hospitalist Physical - Constitutional Vitals: Temp Pulse Resp BP Pulse Ox 98.3 F 101 H 20 77/56 67 L 09/10/20 04:50 09/10/20 04:50 09/10/20 06:44 09/10/20 04:50 09/10/20 04:50 General appearance: Present: no acute distress, well-nourished, obese (Morbidly obese) - EENT Eyes: Present: PERRL, EOM intact - Neck Neck: Present: supple, normal ROM - Respiratory Respiratory effort: normal Respiratory: bilateral: diminished, negative: rales, rhonchi, wheezing - Cardiovascular Rhythm: regular Heart Sounds: Present: S1 & S2 - Extremities Extremities: no ischemia, No edema - Abdominal General gastrointestinal: soft, non-tender, non-distended, normal bowel sounds - Integumentary Integumentary: Present: clear, warm - Psychiatric Psychiatric: appropriate mood/affect, cooperative - Neurologic Neurologic: CNII-XII intact, moves all extremities Results - Labs CBC & Chem 7: 09/09/20 05:02 09/10/20 05:53 Labs: Laboratory Last Values WBC 6.9 K/mm3 (4.5-11.0) 09/09/20 05:02 RBC 4.36 M/mm3 (3.65-5.03) 09/09/20 05:02 Hgb 13.3 gm/dl (10.1-14.3) 09/09/20 05:02 Hct 40.0 % (30.3-42.9) 09/09/20 05:02 MCV 92 fl (79-97) 09/09/20 05:02 MCH 31 pg (28-32) 09/09/20 05:02 MCHC 33 % (30-34) 09/09/20 05:02 RDW 17.6 % (13.2-15.2) H 09/09/20 05:02 Plt Count 228 K/mm3 (140-440) 09/09/20 05:02 Lymph % (Auto) 15.9 % (13.4-35.0) 09/09/20 05:02 [place] % (Auto) 8.7 % (0.0-7.3) H 09/09/20 05:02 Eos % (Auto) 1.5 % (0.0-4.3) 09/09/20 05:02 Baso % (Auto) 0.7 % (0.0-1.8) 09/09/20 05:02 Lymph # (Auto) 1.1 K/mm3 (1.2-5.4) L 09/09/20 05:02 [place] # (Auto) 0.6 K/mm3 (0.0-0.8) 09/09/20 05:02 Eos # (Auto) 0.1 K/mm3 (0.0-0.4) 09/09/20 05:02 Baso # (Auto) 0.0 K/mm3 (0.0-0.1) 09/09/20 05:02 Seg Neutrophils % 73.2 % (40.0-70.0) H 09/09/20 05:02 Seg Neutrophils # 5.1 K/mm3 (1.8-7.7) 09/09/20 05:02 PT 23.3 Sec. (12.2-14.9) H 09/08/20 15:46 INR 2.05 (0.87-1.13) H 09/08/20 15:46 APTT 34.3 Sec. (24.2-36.6) 09/08/20 15:46 Sodium 146 mmol/L (137-145) H 09/10/20 05:53 Potassium 3.7 mmol/L (3.6-5.0) 09/10/20 05:53 Chloride 101.6 mmol/L (98-107) 09/10/20 05:53 Carbon Dioxide 36 mmol/L (22-30) H D 09/10/20 05:53 Anion Gap 12 mmol/L 09/10/20 05:53 BUN 15 mg/dL (7-17) 09/10/20 05:53 Creatinine 1.5 mg/dL (0.6-1.2) H 09/10/20 05:53 Estimated GFR 43 ml/min 09/10/20 05:53 BUN/Creatinine Ratio 10 % 09/10/20 05:53 Glucose 151 mg/dL (65-100) H 09/10/20 05:53 POC Glucose 133 mg/dL (70-105) H 09/10/20 06:14 Lactic Acid 1.20 mmol/L (0.7-2.0) 09/08/20 15:46 Calcium 8.6 mg/dL (8.4-10.2) 09/10/20 05:53 Phosphorus 2.30 mg/dL (2.5-4.5) L 09/10/20 05:53 Magnesium 1.50 mg/dL (1.7-2.3) L 09/10/20 05:53 Total Bilirubin 1.00 mg/dL (0.1-1.2) 09/09/20 05:02 AST 10 units/L (5-40) 09/09/20 05:02 ALT 10 units/L (7-56) 09/09/20 05:02 Alkaline Phosphatase 111 units/L (35-129) 09/09/20 05:02 Total Protein 6.9 g/dL (6.3-8.2) 09/09/20 05:02 Albumin 2.9 g/dL (3.9-5) L 09/09/20 05:02 Albumin/Globulin Ratio 0.7 % 09/09/20 05:02 Lipase 36 units/L (13-60) 09/08/20 15:46 Urine Color Yellow (Yellow) 09/08/20 20:02 Urine Turbidity Clear (Clear) 09/08/20 20:02 Urine pH 5.0 (5.0-7.0) 09/08/20 20:02 Ur Specific [place] 1.020 (1.003-1.030) 09/08/20 20:02 Urine Protein <15 mg/dl mg/dL (Negative) 09/08/20 20:02 Urine Glucose (UA) Neg mg/dL (Negative) 09/08/20 20:02 Urine Ketones Neg mg/dL (Negative) 09/08/20 20:02 Urine Blood Neg (Negative) 09/08/20 20:02 Urine Nitrite Neg (Negative) 09/08/20 20:02 Urine Bilirubin Neg (Negative) 09/08/20 20:02 Urine Urobilinogen < 2.0 mg/dL (<2.0) 09/08/20 20:02 Ur Leukocyte Esterase Neg (Negative) 09/08/20 20:02 Urine WBC (Auto) < 1.0 /HPF (0.0-6.0) 09/08/20 20:02 Urine RBC (Auto) < 1.0 /HPF (0.0-6.0) 09/08/20 20:02 U Epithel Cells (Auto) < 1.0 /HPF (0-13.0) 09/08/20 20:02 Urine Mucus Few /HPF 09/08/20 20:02 Kam/IV: Voiding Method Bedside Commode Active Medications - Current Medications Current Medications: Generic Name Dose Route Start Last Admin Trade Name Freq PRN Reason Stop Dose Admin Acetaminophen 650 mg 09/09/20 01:27 Acetaminophen 325 Mg Tab PO Q4H PRN Pain MILD(1-3)/Fever >100.5/[place] Clonidine HCl 0.3 mg 09/09/20 02:00 09/09/20 02:30 Clonidine Tts 0.3 Mg/24 Hr Patch TD 0.3 mg Fr FERNY Administration Famotidine 20 mg 09/09/20 10:00 09/09/20 22:00 Famotidine 20 Mg/2 Ml Inj IV 20 mg BID FERNY Administration Heparin Sodium (Porcine) 5,000 unit 09/09/20 22:00 09/10/20 06:07 Heparin 5,000 Unit/1 Ml Vial SUB-Q 5,000 unit Q8HR FERNY Administration Hydromorphone HCl 0.5 mg 09/09/20 01:27 09/10/20 06:44 Hydromorphone 1 Mg/1 Ml Inj IV 0.5 mg Q3H PRN Administration Pain , Severe (7-10) Sodium Chloride 1,000 mls @ 100 mls/hr 09/09/20 01:30 Nacl 0.9% 1000 Ml IV DIRECT FERNY Magnesium Sulfate 2 gm in 50 mls @ 25 mls/hr 09/10/20 10:30 Magnesium Sulfate 2gm/50ml IV 09/10/20 12:29 ONCE ONE Potassium Phosphate 30 mmol/ 510 mls @ 83 mls/hr 09/10/20 10:31 Sodium Chloride IV 09/10/20 16:39 ONCE ONE Insulin Human Lispro 0 unit 09/09/20 08:00 09/10/20 00:00 Insulin Lispro 100 Unit/Ml SUB-Q 3 unit Q6HR FERNY Administration Protocol Metoclopramide HCl 10 mg 09/09/20 01:27 Metoclopramide 10 Mg/2 Ml Inj IV Q6H PRN Nausea And Vomiting Morphine Sulfate 2 mg 09/09/20 01:27 09/09/20 06:04 Morphine 2 Mg/1 Ml Inj IV 2 mg Q4H PRN Administration Pain, Moderate (4-6) Ondansetron HCl 4 mg 09/09/20 01:27 09/09/20 02:14 Ondansetron 4 Mg/2 Ml Inj IV 4 mg Q3H PRN Administration Nausea And Vomiting Sodium Chloride 10 ml 09/09/20 10:00 09/09/20 22:00 Sodium Chloride 0.9% 10 Ml Flush Syringe IV 10 ml BID FERNY Administration Sodium Chloride 10 ml 09/09/20 01:27 Sodium Chloride 0.9% 10 Ml Flush Syringe IV PRN PRN LINE FLUSH
[2020-09-10] MEDS: FAMOTIDINE 20 MG/2 ML INJ IV SCH ×2 (11:11→22:00)
--- NOTE | 2020-09-10 12:43 | Progress Note ---
Assessment and Plan 60 year old female about two weeks s/p ex lap for SBO, who presented to ED with SBO two days ago. Afebrile and stable, clinically showing signs of improvement. will clamp NGT today with clamping trials. If does well, may be able to d/c NGT tomorrow and start on clears. Will follow up abdominal x-ray. Subjective Date of service: 09/10/20 Patient Reports: Positive: no new complaints, flatus, bowel movement, afebrile. Negative: nausea (no acute events. pt says she has been passing flatus and having bowel movements), vomiting Objective Vital Signs - 12hr 09/10/20 09/10/20 09/10/20 04:50 06:44 11:03 Temperature 98.3 F 97.9 F Pulse Rate 101 H 92 H Respiratory 18 20 18 Rate Blood Pressure 77/56 141/92 O2 Sat by Pulse 67 L 96 Oximetry - General physical appearance well developed, well nourished, no distress, no pain, obese - Respiratory normal expansion, normal respiratory effort - Abdomen soft, not tender, other (NGT with gastric colored non bilious fluid) - Labs 09/09/20 05:02 09/10/20 05:53 Diabetes panel 09/10/20 Range/Units 05:53 Sodium 146 H (137-145) mmol/L Potassium 3.7 (3.6-5.0) mmol/L Chloride 101.6 (98-107) mmol/L Carbon Dioxide 36 H D (22-30) mmol/L BUN 15 (7-17) mg/dL Creatinine 1.5 H (0.6-1.2) mg/dL Glucose 151 H (65-100) mg/dL Calcium 8.6 (8.4-10.2) mg/dL Calcium panel 09/10/20 Range/Units 05:53 Calcium 8.6 (8.4-10.2) mg/dL Phosphorus 2.30 L (2.5-4.5) mg/dL Pituitary panel 09/10/20 Range/Units 05:53 Sodium 146 H (137-145) mmol/L Potassium 3.7 (3.6-5.0) mmol/L Chloride 101.6 (98-107) mmol/L Carbon Dioxide 36 H D (22-30) mmol/L BUN 15 (7-17) mg/dL Creatinine 1.5 H (0.6-1.2) mg/dL Glucose 151 H (65-100) mg/dL Calcium 8.6 (8.4-10.2) mg/dL Adrenal panel 09/10/20 Range/Units 05:53 Sodium 146 H (137-145) mmol/L Potassium 3.7 (3.6-5.0) mmol/L Chloride 101.6 (98-107) mmol/L Carbon Dioxide 36 H D (22-30) mmol/L BUN 15 (7-17) mg/dL Creatinine 1.5 H (0.6-1.2) mg/dL Glucose 151 H (65-100) mg/dL Calcium 8.6 (8.4-10.2) mg/dL
[2020-09-11] MEDS: HEPARIN 5,000 UNIT/1 ML VIAL SUB-Q SCH ×3 (06:32→21:40)
[2020-09-11] MEDS: FAMOTIDINE 20 MG/2 ML INJ IV SCH ×3 (08:27→21:40)
[2020-09-11] MEDS: INSULIN LISPRO 100 UNIT/ML SUB-Q SCH ×6 (08:31→23:15)
--- NOTE | 2020-09-11 08:54 | XRay Report ---
ABDOMEN 1 VIEW INDICATION / CLINICAL INFORMATION: f/u sbo. COMPARISON: 09/08/2020. FINDINGS: TUBES / LINES: Esophagogastric tube tip and sidehole project over the left upper quadrant near the st omach. BOWEL GAS PATTERN: There are a few gas-filled loops of small bowel in the left abdomen. FREE AIR / EXTRALUMINAL GAS: None seen. ADDITIONAL FINDINGS: No significant additional findings. IMPRESSION: 1. A few gas-filled loops of small bowel in the left abdomen could represent persistent obstruction. Signer Name: Montez Jara MD Signed: 09/11/2020 8:49 AM Workstation Name: [id number]
--- NOTE | 2020-09-11 09:53 | Progress Note ---
Assessment and Plan Assessment and plan: -- Small bowel obstruction N.p.o. status, low intermittent suction IV fluids, supportive care, Surgery following 09/11 abdominal x-ray, findings consistent with persistent obstruction Patient is clinically improving,Management per surgery, Small bowel follow-through a.m., supportive care --Hypophosphatemia; Supplement with IV K-Phos 30 mEq Monitor electrolytes --hypomagnesemia Magnesium levels corrected Closely monitor electrolytes --LA (acute kidney injury) Vasomotor nephropathy , gentle IV hydration Monitor renal function, avoid nephrotoxins Mild improvement, continue IV fluids --History of HIV Hold antiretrovirals for now ID consult if needed -- Hypertension Patient initiated on Catapres patch TTS 3 q. weekly Closely monitor blood pressures Continue current antihypertensives and as needed hydralazine --Type II IDDM (insulin dependent diabetes mellitus) Accu-Chek sliding scale coverage Patient is n.p.o. status, ADA diet when able to take oral Check A1c --Morbid obesity ; BMI 41.6 Patient needs dietary modification, exercise as tolerated, lifestyle changes, and weight reduction when medically stable --Severe malnutrition /hypoalbuminemia albumin 2.9, secondary to underlying disease process Supportive care, nutrition consult if needed --DVT prophylaxis On heparin and GI prophylaxis Surgery recommendations noted and appreciated We will closely monitor the patient and adjust management as needed Plan of care reviewed with the patient and her nurse Brief history; 60 yo F s/p recent admission at [facility] for SBO ,s/p exlap, lysis of adhesions on 08/26/[address] Mora discharged on 09/01/2020. Was admitted through emergency room with abdominal pain, initial work-up in the ED is consistent with small bowel obstruction, evaluated by surgeon, placed NG tube intermittent suction, with significant improvement of symptoms. Patient has been having flatus and bowel movements. 09/09/2020; small bowel obstruction, n.p.o. status NG tube placement, intermittent suction, supportive care 09/10/2020; Patient is having flatus and bowel movements, continue n.p.o. status Hypomagnesemia, hypophosphatemia treated with IV mag self, and IV K-Phos Closely monitor electrolytes, possible removal of NG tube and starting clear liquids tomorrow If patient is stable per surgery 09/11/2020; patient symptoms slightly improved However abdominal x-ray persistent small bowel obstruction Surgery recommend small bowel follow-through, continue n.p.o. status History Interval history: I have seen and examined the patient at the bedside this morning,Patient's chart and medications reviewed Patient feels slightly better, however abdominal series this morning show persistent obstruction Patient is anxious to eat and be discharged No new complaints Vital signs reviewed Hospitalist Physical - Constitutional Vitals: Temp Pulse Resp BP Pulse Ox 98.4 F 92 H 20 130/82 96 09/11/20 07:38 09/11/20 07:38 09/11/20 07:38 09/11/20 07:38 09/11/20 07:38 General appearance: Present: no acute distress, well-nourished, obese (Morbidly obese) - EENT Eyes: Present: PERRL, EOM intact - Neck Neck: Present: supple, normal ROM - Respiratory Respiratory effort: normal Respiratory: bilateral: diminished, negative: rales, rhonchi, wheezing - Cardiovascular Rhythm: regular Heart Sounds: Present: S1 & S2 - Extremities Extremities: no ischemia, No edema - Abdominal General gastrointestinal: soft, non-tender, distended (Mild), normal bowel sounds - Integumentary Integumentary: Present: clear, warm - Psychiatric Psychiatric: appropriate mood/affect, cooperative - Neurologic Neurologic: moves all extremities Results - Labs CBC & Chem 7: 09/09/20 05:02 09/11/20 10:24 Labs: Laboratory Last Values WBC 6.9 K/mm3 (4.5-11.0) 09/09/20 05:02 RBC 4.36 M/mm3 (3.65-5.03) 09/09/20 05:02 Hgb 13.3 gm/dl (10.1-14.3) 09/09/20 05:02 Hct 40.0 % (30.3-42.9) 09/09/20 05:02 MCV 92 fl (79-97) 09/09/20 05:02 MCH 31 pg (28-32) 09/09/20 05:02 MCHC 33 % (30-34) 09/09/20 05:02 RDW 17.6 % (13.2-15.2) H 09/09/20 05:02 Plt Count 228 K/mm3 (140-440) 09/09/20 05:02 Lymph % (Auto) 15.9 % (13.4-35.0) 09/09/20 05:02 [place] % (Auto) 8.7 % (0.0-7.3) H 09/09/20 05:02 Eos % (Auto) 1.5 % (0.0-4.3) 09/09/20 05:02 Baso % (Auto) 0.7 % (0.0-1.8) 09/09/20 05:02 Lymph # (Auto) 1.1 K/mm3 (1.2-5.4) L 09/09/20 05:02 [place] # (Auto) 0.6 K/mm3 (0.0-0.8) 09/09/20 05:02 Eos # (Auto) 0.1 K/mm3 (0.0-0.4) 09/09/20 05:02 Baso # (Auto) 0.0 K/mm3 (0.0-0.1) 09/09/20 05:02 Seg Neutrophils % 73.2 % (40.0-70.0) H 09/09/20 05:02 Seg Neutrophils # 5.1 K/mm3 (1.8-7.7) 09/09/20 05:02 PT 23.3 Sec. (12.2-14.9) H 09/08/20 15:46 INR 2.05 (0.87-1.13) H 09/08/20 15:46 APTT 34.3 Sec. (24.2-36.6) 09/08/20 15:46 Sodium 146 mmol/L (137-145) H 09/10/20 05:53 Potassium 3.7 mmol/L (3.6-5.0) 09/10/20 05:53 Chloride 101.6 mmol/L (98-107) 09/10/20 05:53 Carbon Dioxide 36 mmol/L (22-30) H D 09/10/20 05:53 Anion Gap 12 mmol/L 09/10/20 05:53 BUN 15 mg/dL (7-17) 09/10/20 05:53 Creatinine 1.5 mg/dL (0.6-1.2) H 09/10/20 05:53 Estimated GFR 43 ml/min 09/10/20 05:53 BUN/Creatinine Ratio 10 % 09/10/20 05:53 Glucose 151 mg/dL (65-100) H 09/10/20 05:53 POC Glucose 134 mg/dL (70-105) H 09/11/20 07:39 Lactic Acid 1.20 mmol/L (0.7-2.0) 09/08/20 15:46 Calcium 8.6 mg/dL (8.4-10.2) 09/10/20 05:53 Phosphorus 2.30 mg/dL (2.5-4.5) L 09/10/20 05:53 Magnesium 1.50 mg/dL (1.7-2.3) L 09/10/20 05:53 Total Bilirubin 1.00 mg/dL (0.1-1.2) 09/09/20 05:02 AST 10 units/L (5-40) 09/09/20 05:02 ALT 10 units/L (7-56) 09/09/20 05:02 Alkaline Phosphatase 111 units/L (35-129) 09/09/20 05:02 Total Protein 6.9 g/dL (6.3-8.2) 09/09/20 05:02 Albumin 2.9 g/dL (3.9-5) L 09/09/20 05:02 Albumin/Globulin Ratio 0.7 % 09/09/20 05:02 Lipase 36 units/L (13-60) 09/08/20 15:46 Urine Color Yellow (Yellow) 09/08/20 20:02 Urine Turbidity Clear (Clear) 09/08/20 20:02 Urine pH 5.0 (5.0-7.0) 09/08/20 20:02 Ur Specific [place] 1.020 (1.003-1.030) 09/08/20 20:02 Urine Protein <15 mg/dl mg/dL (Negative) 09/08/20 20:02 Urine Glucose (UA) Neg mg/dL (Negative) 09/08/20 20:02 Urine Ketones Neg mg/dL (Negative) 09/08/20 20:02 Urine Blood Neg (Negative) 09/08/20 20:02 Urine Nitrite Neg (Negative) 09/08/20 20:02 Urine Bilirubin Neg (Negative) 09/08/20 20:02 Urine Urobilinogen < 2.0 mg/dL (<2.0) 09/08/20 20:02 Ur Leukocyte Esterase Neg (Negative) 09/08/20 20:02 Urine WBC (Auto) < 1.0 /HPF (0.0-6.0) 09/08/20 20:02 Urine RBC (Auto) < 1.0 /HPF (0.0-6.0) 09/08/20 20:02 U Epithel Cells (Auto) < 1.0 /HPF (0-13.0) 09/08/20 20:02 Urine Mucus Few /HPF 09/08/20 20:02 Kam/IV: Voiding Method Bedside Commode Active Medications - Current Medications Current Medications: Generic Name Dose Route Start Last Admin Trade Name Freq PRN Reason Stop Dose Admin Acetaminophen 650 mg 09/09/20 01:27 Acetaminophen 325 Mg Tab PO Q4H PRN Pain MILD(1-3)/Fever >100.5/VELÁSQUEZ Clonidine HCl 0.3 mg 09/09/20 02:00 09/09/20 02:30 Clonidine Tts 0.3 Mg/24 Hr Patch TD 0.3 mg Fr FERNY Administration Famotidine 20 mg 09/09/20 10:00 09/11/20 08:27 Famotidine 20 Mg/2 Ml Inj IV 20 mg BID FERNY Administration Heparin Sodium (Porcine) 5,000 unit 09/09/20 22:00 09/11/20 06:32 Heparin 5,000 Unit/1 Ml Vial SUB-Q 5,000 unit Q8HR FERNY Administration Hydromorphone HCl 0.5 mg 09/09/20 01:27 09/10/20 06:44 Hydromorphone 1 Mg/1 Ml Inj IV 0.5 mg Q3H PRN Administration Pain , Severe (7-10) Sodium Chloride 1,000 mls @ 100 mls/hr 09/09/20 01:30 Nacl 0.9% 1000 Ml IV DIRECT [facility] Insulin Human Lispro 0 unit 09/09/20 08:00 09/11/20 08:31 Insulin Lispro 100 Unit/Ml SUB-Q Not Given Q6HR [facility] Protocol Metoclopramide HCl 10 mg 09/09/20 01:27 Metoclopramide 10 Mg/2 Ml Inj IV Q6H PRN Nausea And Vomiting Morphine Sulfate 2 mg 09/09/20 01:27 09/09/20 06:04 Morphine 2 Mg/1 Ml Inj IV 2 mg Q4H PRN Administration Pain, Moderate (4-6) Ondansetron HCl 4 mg 09/09/20 01:27 09/09/20 02:14 Ondansetron 4 Mg/2 Ml Inj IV 4 mg Q3H PRN Administration Nausea And Vomiting Sodium Chloride 10 ml 09/09/20 10:00 09/10/20 22:00 Sodium Chloride 0.9% 10 Ml Flush Syringe IV 10 ml BID FERNY Administration Sodium Chloride 10 ml 09/09/20 01:27 Sodium Chloride 0.9% 10 Ml Flush Syringe IV PRN PRN LINE FLUSH
[2020-09-11 11:03] LABS: Calcium 8.5 mg/dL (8.4-10.2)
[2020-09-11] MEDS: HYDROmorphone 1 MG/1 ML INJ IV PRN ×2 (11:50→21:41)
--- NOTE | 2020-09-11 13:06 | Progress Note ---
Assessment and Plan 60 year old female about two weeks s/p ex lap for SBO, who presented to ED with SBO two days ago. Afebrile and stable, clinically showing signs of improvement but x-ray has not normalized. Continue to keep NGT clamped since not having high residuals or n/v. Small bowel follow through series ordered from tomorrow morning. If negative for obstruction will d/c ngt and start on trial of clears. Subjective Date of service: 09/11/20 Patient Reports: Positive: no new complaints, still having pain, pain is less, flatus, bowel movement (no acute events overnight. Tolerated NGT clamping trial past 24 hours. Pt had an abdominal x-ray this morning that showed persistent dilated small bowel loops) Objective Vital Signs - 12hr 09/11/20 09/11/20 09/11/20 03:55 07:38 11:37 Temperature 98.5 F 98.4 F 98.3 F Pulse Rate 93 H 92 H 105 H Respiratory 18 20 18 Rate Blood Pressure 133/86 130/82 141/87 O2 Sat by Pulse 100 96 77 L Oximetry 09/11/20 12:25 Temperature Pulse Rate Respiratory Rate Blood Pressure O2 Sat by Pulse 97 Oximetry - General physical appearance well developed, no distress, no pain, obese - Respiratory normal expansion, normal respiratory effort - Abdomen soft, not tender, not guarding, not rigid - Labs 09/09/20 05:02 09/11/20 10:24 Diabetes panel 09/11/20 Range/Units 10:24 Sodium 143 (137-145) mmol/L Potassium 3.8 (3.6-5.0) mmol/L Chloride 102.7 (98-107) mmol/L Carbon Dioxide 28 D (22-30) mmol/L BUN 12 (7-17) mg/dL Creatinine 1.4 H (0.6-1.2) mg/dL Glucose 149 H (65-100) mg/dL Calcium 8.5 (8.4-10.2) mg/dL Calcium panel 09/11/20 Range/Units 10:24 Calcium 8.5 (8.4-10.2) mg/dL Phosphorus 2.30 L (2.5-4.5) mg/dL Pituitary panel 09/11/20 Range/Units 10:24 Sodium 143 (137-145) mmol/L Potassium 3.8 (3.6-5.0) mmol/L Chloride 102.7 (98-107) mmol/L Carbon Dioxide 28 D (22-30) mmol/L BUN 12 (7-17) mg/dL Creatinine 1.4 H (0.6-1.2) mg/dL Glucose 149 H (65-100) mg/dL Calcium 8.5 (8.4-10.2) mg/dL Adrenal panel 09/11/20 Range/Units 10:24 Sodium 143 (137-145) mmol/L Potassium 3.8 (3.6-5.0) mmol/L Chloride 102.7 (98-107) mmol/L Carbon Dioxide 28 D (22-30) mmol/L BUN 12 (7-17) mg/dL Creatinine 1.4 H (0.6-1.2) mg/dL Glucose 149 H (65-100) mg/dL Calcium 8.5 (8.4-10.2) mg/dL
[2020-09-11] MEDS ORDERED: POTASSIUM PHOSPHATE 30 MMOL in SODIUM CHLORIDE 0.9% 500 ML 500 ML IV ONE (18:00)
[2020-09-11] MEDS: ONDANSETRON 4 MG/2 ML INJ IV PRN (21:40)
[2020-09-12] MEDS: HEPARIN 5,000 UNIT/1 ML VIAL SUB-Q SCH ×3 (05:15→22:12)
[2020-09-12 05:16] LABS: Calcium 8.2 mg/dL (8.4-10.2)
--- NOTE | 2020-09-12 09:12 | Progress Note ---
Assessment and Plan Assessment and plan: -- Small bowel obstruction N.p.o. status, low intermittent suction IV fluids, supportive care, Surgery following 09/11 abdominal x-ray, findings consistent with persistent obstruction Patient is clinically improving,Management per surgery, Small bowel follow-through a.m., supportive care --Hypophosphatemia; Supplement with IV K-Phos 30 mEq Monitor electrolytes --hypomagnesemia Magnesium levels corrected Closely monitor electrolytes --LA (acute kidney injury) Vasomotor nephropathy , gentle IV hydration Monitor renal function, avoid nephrotoxins Mild improvement, continue IV fluids --History of HIV Hold antiretrovirals for now ID consult if needed -- Hypertension Patient initiated on Catapres patch TTS 3 q. weekly Closely monitor blood pressures Continue current antihypertensives and as needed hydralazine --Type II IDDM (insulin dependent diabetes mellitus) Accu-Chek sliding scale coverage Patient is n.p.o. status, ADA diet when able to take oral Check A1c --Morbid obesity ; BMI 41.6 Patient needs dietary modification, exercise as tolerated, lifestyle changes, and weight reduction when medically stable --Severe malnutrition /hypoalbuminemia albumin 2.9, secondary to underlying disease process Supportive care, nutrition consult if needed --DVT prophylaxis On heparin and GI prophylaxis Surgery recommendations noted and appreciated We will closely monitor the patient and adjust management as needed Plan of care reviewed with the patient and her nurse Brief history; 60 yo F s/p recent [facility] ,s/p exlap, lysis of adhesions on 08/26/[address] Mora discharged on 09/01/2020. Was admitted through emergency room with abdominal pain, initial work-up in the ED is consistent with small bowel obstruction, evaluated by surgeon, placed NG tube intermittent suction, with significant improvement of symptoms. Patient has been having flatus and bowel movements. 09/09/2020; small bowel obstruction, n.p.o. status NG tube placement, intermittent suction, supportive care 09/10/2020; Patient is having flatus and bowel movements, continue n.p.o. status Hypomagnesemia, hypophosphatemia treated with IV mag self, and IV K-Phos Closely monitor electrolytes, possible removal of NG tube and starting clear liquids tomorrow If patient is stable per surgery 09/11/2020; patient symptoms slightly improved However abdominal x-ray persistent small bowel obstruction Surgery recommend small bowel follow-through, continue n.p.o. status 09/13/19 21; patient continues to have symptoms of small bowel obstruction NG tube with intermittent suction, n.p.o. status, surgery following History Interval history: I have seen and examined the patient at the bedside this afternoon Patient's chart and medications reviewed Patient continues to have small bowel obstruction Continue NG tube with intermittent suction N.p.o. status Patient is in mild distress Vital signs noted Hospitalist Physical - Constitutional Vitals: Temp Pulse Resp BP Pulse Ox 98.2 F 79 18 118/45 99 09/12/20 07:32 09/12/20 07:32 09/12/20 07:32 09/12/20 07:32 09/12/20 07:32 General appearance: Present: mild distress, well-nourished, obese (Morbidly obese) - EENT Eyes: Present: PERRL, EOM intact - Neck Neck: Present: supple, normal ROM - Respiratory Respiratory effort: normal Respiratory: bilateral: diminished, negative: rales, rhonchi, wheezing - Cardiovascular Rhythm: regular Heart Sounds: Present: S1 & S2 - Extremities Extremities: no ischemia, No edema - Abdominal General gastrointestinal: soft, non-tender, distended (Mild), normal bowel sounds - Integumentary Integumentary: Present: clear, warm - Psychiatric Psychiatric: appropriate mood/affect, cooperative - Neurologic Neurologic: CNII-XII intact, moves all extremities Results - Labs CBC & Chem 7: 09/09/20 05:02 09/12/20 04:09 Labs: Laboratory Last Values WBC 6.9 K/mm3 (4.5-11.0) 09/09/20 05:02 RBC 4.36 M/mm3 (3.65-5.03) 09/09/20 05:02 Hgb 13.3 gm/dl (10.1-14.3) 09/09/20 05:02 Hct 40.0 % (30.3-42.9) 09/09/20 05:02 MCV 92 fl (79-97) 09/09/20 05:02 MCH 31 pg (28-32) 09/09/20 05:02 MCHC 33 % (30-34) 09/09/20 05:02 RDW 17.6 % (13.2-15.2) H 09/09/20 05:02 Plt Count 228 K/mm3 (140-440) 09/09/20 05:02 Lymph % (Auto) 15.9 % (13.4-35.0) 09/09/20 05:02 [place] % (Auto) 8.7 % (0.0-7.3) H 09/09/20 05:02 Eos % (Auto) 1.5 % (0.0-4.3) 09/09/20 05:02 Baso % (Auto) 0.7 % (0.0-1.8) 09/09/20 05:02 Lymph # (Auto) 1.1 K/mm3 (1.2-5.4) L 09/09/20 05:02 [place] # (Auto) 0.6 K/mm3 (0.0-0.8) 09/09/20 05:02 Eos # (Auto) 0.1 K/mm3 (0.0-0.4) 09/09/20 05:02 Baso # (Auto) 0.0 K/mm3 (0.0-0.1) 09/09/20 05:02 Seg Neutrophils % 73.2 % (40.0-70.0) H 09/09/20 05:02 Seg Neutrophils # 5.1 K/mm3 (1.8-7.7) 09/09/20 05:02 PT 23.3 Sec. (12.2-14.9) H 09/08/20 15:46 INR 2.05 (0.87-1.13) H 09/08/20 15:46 APTT 34.3 Sec. (24.2-36.6) 09/08/20 15:46 Sodium 145 mmol/L (137-145) 09/12/20 04:09 Potassium 3.5 mmol/L (3.6-5.0) L 09/12/20 04:09 Chloride 104.2 mmol/L (98-107) 09/12/20 04:09 Carbon Dioxide 30 mmol/L (22-30) 09/12/20 04:09 Anion Gap 14 mmol/L 09/12/20 04:09 BUN 11 mg/dL (7-17) 09/12/20 04:09 Creatinine 1.3 mg/dL (0.6-1.2) H 09/12/20 04:09 Estimated GFR 51 ml/min 09/12/20 04:09 BUN/Creatinine Ratio 8 % 09/12/20 04:09 Glucose 112 mg/dL (65-100) H 09/12/20 04:09 POC Glucose 108 mg/dL (70-105) H 09/12/20 06:05 Lactic Acid 1.20 mmol/L (0.7-2.0) 09/08/20 15:46 Calcium 8.2 mg/dL (8.4-10.2) L 09/12/20 04:09 Phosphorus 2.20 mg/dL (2.5-4.5) L 09/12/20 04:09 Magnesium 1.90 mg/dL (1.7-2.3) 09/12/20 04:09 Total Bilirubin 1.00 mg/dL (0.1-1.2) 09/09/20 05:02 AST 10 units/L (5-40) 09/09/20 05:02 ALT 10 units/L (7-56) 09/09/20 05:02 Alkaline Phosphatase 111 units/L (35-129) 09/09/20 05:02 Total Protein 6.9 g/dL (6.3-8.2) 09/09/20 05:02 Albumin 2.9 g/dL (3.9-5) L 09/09/20 05:02 Albumin/Globulin Ratio 0.7 % 09/09/20 05:02 Lipase 36 units/L (13-60) 09/08/20 15:46 Urine Color Yellow (Yellow) 09/08/20 20:02 Urine Turbidity Clear (Clear) 09/08/20 20:02 Urine pH 5.0 (5.0-7.0) 09/08/20 20:02 Ur Specific [place] 1.020 (1.003-1.030) 09/08/20 20:02 Urine Protein <15 mg/dl mg/dL (Negative) 09/08/20 20:02 Urine Glucose (UA) Neg mg/dL (Negative) 09/08/20 20:02 Urine Ketones Neg mg/dL (Negative) 09/08/20 20:02 Urine Blood Neg (Negative) 09/08/20 20:02 Urine Nitrite Neg (Negative) 09/08/20 20:02 Urine Bilirubin Neg (Negative) 09/08/20 20:02 Urine Urobilinogen < 2.0 mg/dL (<2.0) 09/08/20 20:02 Ur Leukocyte Esterase Neg (Negative) 09/08/20 20:02 Urine WBC (Auto) < 1.0 /HPF (0.0-6.0) 09/08/20 20:02 Urine RBC (Auto) < 1.0 /HPF (0.0-6.0) 09/08/20 20:02 U Epithel Cells (Auto) < 1.0 /HPF (0-13.0) 09/08/20 20:02 Urine Mucus Few /HPF 09/08/20 20:02 Kam/IV: Voiding Method Bedside Commode Active Medications - Current Medications Current Medications: Generic Name Dose Route Start Last Admin Trade Name Freq PRN Reason Stop Dose Admin Acetaminophen 650 mg 09/09/20 01:27 Acetaminophen 325 Mg Tab PO Q4H PRN Pain MILD(1-3)/Fever >100.5/VELÁSQUEZ Clonidine HCl 0.3 mg 09/09/20 02:00 09/09/20 02:30 Clonidine Tts 0.3 Mg/24 Hr Patch TD 0.3 mg Fr FERNY Administration Famotidine 20 mg 09/09/20 10:00 09/11/20 21:40 Famotidine 20 Mg/2 Ml Inj IV 20 mg BID FERNY Administration Heparin Sodium (Porcine) 5,000 unit 09/09/20 22:00 09/12/20 05:15 Heparin 5,000 Unit/1 Ml Vial SUB-Q 5,000 unit Q8HR FERNY Administration Hydromorphone HCl 0.5 mg 09/09/20 01:27 09/11/20 21:41 Hydromorphone 1 Mg/1 Ml Inj IV 0.5 mg Q3H PRN Administration Pain , Severe (7-10) Sodium Chloride 1,000 mls @ 100 mls/hr 09/09/20 01:30 Nacl 0.9% 1000 Ml IV DIRECT FERNY Insulin Human Lispro 0 unit 09/09/20 08:00 09/11/20 23:15 Insulin Lispro 100 Unit/Ml SUB-Q Not Given Q6HR [facility] Protocol Metoclopramide HCl 10 mg 09/09/20 01:27 Metoclopramide 10 Mg/2 Ml Inj IV Q6H PRN Nausea And Vomiting Morphine Sulfate 2 mg 09/09/20 01:27 09/09/20 06:04 Morphine 2 Mg/1 Ml Inj IV 2 mg Q4H PRN Administration Pain, Moderate (4-6) Ondansetron HCl 4 mg 09/09/20 01:27 09/11/20 21:40 Ondansetron 4 Mg/2 Ml Inj IV 4 mg Q3H PRN Administration Nausea And Vomiting Sodium Chloride 10 ml 09/09/20 10:00 09/11/20 22:04 Sodium Chloride 0.9% 10 Ml Flush Syringe IV 10 ml BID FERNY Administration Sodium Chloride 10 ml 09/09/20 01:27 Sodium Chloride 0.9% 10 Ml Flush Syringe IV PRN PRN LINE FLUSH
[2020-09-12] MEDS: FAMOTIDINE 20 MG/2 ML INJ IV SCH ×2 (12:41→22:12)
[2020-09-12] MEDS: HYDROmorphone 1 MG/1 ML INJ IV PRN ×2 (12:41→22:14)
[2020-09-12] MEDS: INSULIN LISPRO 100 UNIT/ML SUB-Q SCH ×2 (12:44→17:58)
--- NOTE | 2020-09-12 14:44 | Progress Note ---
Assessment and Plan 60 yo F with abdominal pain, Hx of exkermit EDDIE for SBO on 08/26/[address] Mora Pt clinically stable. SBFT results pending - at 2 hr contrast through small bowel but none present in colon. Plan: 1. continue NGT for now - will place to LIWS as patient is having increasing abdominal discomfort after drinking oral contrast 2. IVF - change to D5NS+K 3. Prn pain control 4. NPO except ice chips 5. OOB/ambulate 6. DVT ppx 7. IS/pulm toilet 9. Will follow. Plan discussed in detail with patient. Thank you, please call with questions. Subjective Date of service: 09/12/20 Narrative: Pt seen and examined. s/o SBFT. States she did well with oral contrast and did not have any n/v. However does c/o crampy mid abdominal pain. She is passing flatus and has been having multiple BMs. Tolerated NGT clamping throughout the weekend with minimal residuals. NO f/c. Objective Vital Signs - 12hr 09/12/20 09/12/20 04:02 07:32 Temperature 98.3 F 98.2 F Pulse Rate 77 79 Respiratory 20 18 Rate Blood Pressure 135/80 118/45 O2 Sat by Pulse 97 99 Oximetry - General physical appearance Narrative Exam: Gen: AAOx3. mod distress due to pain ENT: NGT with brown drainage CV: S1, S2+ Resp: even and unlabored Abd: soft, ND, obese, Tenderness in midline near harper. No r/r/g. [place] intact with small gaps between skin in the lower portion of the incision - no drainage, erythema, induration. - Labs 09/09/20 05:02 09/12/20 04:09 Diabetes panel 09/12/20 Range/Units 04:09 Sodium 145 (137-145) mmol/L Potassium 3.5 L (3.6-5.0) mmol/L Chloride 104.2 (98-107) mmol/L Carbon Dioxide 30 (22-30) mmol/L BUN 11 (7-17) mg/dL Creatinine 1.3 H (0.6-1.2) mg/dL Glucose 112 H (65-100) mg/dL Calcium 8.2 L (8.4-10.2) mg/dL Calcium panel 09/12/20 Range/Units 04:09 Calcium 8.2 L (8.4-10.2) mg/dL Phosphorus 2.20 L (2.5-4.5) mg/dL Pituitary panel 09/12/20 Range/Units 04:09 Sodium 145 (137-145) mmol/L Potassium 3.5 L (3.6-5.0) mmol/L Chloride 104.2 (98-107) mmol/L Carbon Dioxide 30 (22-30) mmol/L BUN 11 (7-17) mg/dL Creatinine 1.3 H (0.6-1.2) mg/dL Glucose 112 H (65-100) mg/dL Calcium 8.2 L (8.4-10.2) mg/dL Adrenal panel 09/12/20 Range/Units 04:09 Sodium 145 (137-145) mmol/L Potassium 3.5 L (3.6-5.0) mmol/L Chloride 104.2 (98-107) mmol/L Carbon Dioxide 30 (22-30) mmol/L BUN 11 (7-17) mg/dL Creatinine 1.3 H (0.6-1.2) mg/dL Glucose 112 H (65-100) mg/dL Calcium 8.2 L (8.4-10.2) mg/dL
--- NOTE | 2020-09-12 15:27 | Discharge Summary ---
Providers - Providers Date of Admission: 09/08/20 19:11 Date of discharge: 09/12/20 Attending physician: TEREZA GARCIA 09/08/20 19:12 Consult to Physician [CONS] Routine Comment: Consulting Provider: AMELIA ROSAS Physician Instructions: Reason For Exam: abd pain. sbo Hospitalization Condition: Critical Pertinent studies: CT abdomen and pelvis CT head without contrast CTA head CTA neck Chest x-ray Disposition: DC/TX-70 ANOTHER TYPE [facility]THCARE Time spent for discharge: 35 min Core Measure Documentation - Palliative Care Palliative Care/ Comfort Measures: Not Applicable Exam - Constitutional Vitals: Temp Pulse Resp BP Pulse Ox 98.2 F 79 18 118/45 99 09/12/20 07:32 09/12/20 07:32 09/12/20 07:32 09/12/20 07:32 09/12/20 07:32 Plan
[2020-09-12] MEDS ORDERED: HYDROmorphone 1 MG/1 ML INJ IV ONE (15:33)
[2020-09-12] MEDS: D5NS W/KCL 20 MEQ 20 MEQ/1,000 ML BAG IV SCH (15:39)
[2020-09-13] MEDS: D5NS W/KCL 20 MEQ 20 MEQ/1,000 ML BAG IV SCH (02:26)
[2020-09-13] MEDS: INSULIN LISPRO 100 UNIT/ML SUB-Q SCH ×4 (02:30→19:02)
[2020-09-13] MEDS: HEPARIN 5,000 UNIT/1 ML VIAL SUB-Q SCH ×3 (05:55→21:26)
--- NOTE | 2020-09-13 08:33 | Fluoroscopy Report ---
SMALL BOWEL FOLLOW-THROUGH HISTORY: Small bowel obstruction. TECHNIQUE: Single contrast Gastrografin technique utilized to evaluate the small bowel. COMPARISON: AP abdomen 09/11/2020. CT abdomen pelvis 09/08/2020. FINDINGS: Small bowel transit time was significantly delayed at greater than 4 hours. Multiple dilate d loops of small bowel are present. When correlating with recent CT, there appears to be a transition point in the distal small bowel in the right lower quadrant. A 20 hour delayed KUB was obtained the next morning. Oral contrast has advanced into the colon on the delayed image. Small bowel dilatation does appear decreased on the delayed image. IMPRESSION: Significant delay in oral contrast transit time through small bowel loops as described. FLUOROSCOPIC TIME: 0 minutes NUMBER OF FLUOROSCOPIC IMAGES: 0 Signer Name: Thanh Reeves Jr, MD Signed: 09/13/2020 8:29 AM Workstation Name: [id number]
[2020-09-13] MEDS: FAMOTIDINE 20 MG/2 ML INJ IV SCH ×2 (09:43→21:26)
--- NOTE | 2020-09-13 10:54 | Progress Note ---
Assessment and Plan 60 yo F with abdominal pain, Hx of exlap, EDDIE for SBO on 08/26/[address] Mora Pt clinically stable. Multiple BMs. Pain resolved SBFT - delayed transit of contrast into colon. 20H xray shows contrast to descending colon Plan: 1. dc NGT 2. IVF - D5NS+K 3. Prn pain control 4. start clear liquids with protein supplements - do not advance 5. OOB/ambulate 6. DVT ppx 7. IS/pulm toilet Plan discussed in detail with patient. If continues to clinically improve, will consider dc tomorrow. Thank you, please call with questions. Subjective Date of service: 09/13/20 Narrative: Pt seen and examined. States she feels much better today. Had multiple large BMs since yesterday. No f/c. No n/v. Objective Vital Signs - 12hr 09/12/20 09/13/20 09/13/20 23:46 05:13 07:13 Temperature 97.5 F L 98.1 F 98.6 F Pulse Rate 94 H 90 76 Respiratory 18 18 16 Rate Blood Pressure 130/86 123/71 142/83 O2 Sat by Pulse 94 95 96 Oximetry - General physical appearance Narrative Exam: Gen: AAOx3. NAD ENT: NGT clamped CV: S1, S2+ Resp: even and unlabored Abd: soft, ND, obese, NT - Labs 09/09/20 05:02 09/12/20 04:09
[2020-09-13] MEDS: METOCLOPRAMIDE 10 MG/2 ML INJ IV SCH (14:08)
--- NOTE | 2020-09-13 15:22 | Progress Note ---
Assessment and Plan -- Small bowel obstruction Status post n.p.o. status, low intermittent suction IV fluids, supportive care, Surgery following 09/11 abdominal x-ray, findings consistent with persistent obstruction Patient is clinically improving,Management per surgery, Off NG tube today and started on clear liquid --Hypophosphatemia and hypokalemia; Supplement with IV K-Phos 30 mEq Monitor electrolytes --hypomagnesemia Magnesium levels corrected Closely monitor electrolytes --LA (acute kidney injury) Vasomotor nephropathy , gentle IV hydration Monitor renal function, avoid nephrotoxins Mild improvement, continue IV fluids --History of HIV Hold antiretrovirals for now ID consult if needed -- Hypertension Patient initiated on Catapres patch TTS 3 q. weekly Closely monitor blood pressures Continue current antihypertensives and as needed hydralazine --Type II IDDM (insulin dependent diabetes mellitus) Accu-Chek sliding scale coverage Patient is n.p.o. status, ADA diet when able to take oral Check A1c --Morbid obesity ; BMI 41.6 Patient needs dietary modification, exercise as tolerated, lifestyle changes, and weight reduction when medically stable --Severe malnutrition /hypoalbuminemia albumin 2.9, secondary to underlying disease process Supportive care, nutrition consult if needed --DVT prophylaxis On heparin and GI prophylaxis Surgery recommendations noted and appreciated We will closely monitor the patient and adjust management as needed Plan of care reviewed with the patient and her nurse Brief history; 60 yo F s/p recent admission at [facility] for SBO ,s/p exlap, lysis of adhesions on 08/26/[address] Mora discharged on 09/01/2020. Was admitted through emergency room with abdominal pain, initial work-up in the ED is consistent with small bowel obstruction, evaluated by surgeon, placed NG tube intermittent suction, with significant improvement of symptoms. Patient has been having fl atus and bowel movements. Daily clinical course. 09/09/2020; small bowel obstruction, n.p.o. status NG tube placement, intermittent suction, supportive care 09/10/2020; Patient is having flatus and bowel movements, continue n.p.o. status Hypomagnesemia, hypophosphatemia treated with IV mag self, and IV K-Phos Closely monitor electrolytes, possible removal of NG tube and starting clear liquids tomorrow If patient is stable per surgery 09/11/2020; patient symptoms slightly improved However abdominal x-ray persistent small bowel obstruction Surgery recommend small bowel follow-through, continue n.p.o. status 09/13/19 21; patient continues to have symptoms of small bowel obstruction NG tube with intermittent suction, n.p.o. status, surgery following 09/13: Patient off NG tube today, started on a clear liquid diet. If tolerates clear liquid diet might be able to advance, tomorrow. DC soon when medically stable and cleared by general surgery. Subjective Date of service: 09/13/20 Interval history: Patient seen and examined. Medical records and medication list reviewed. No acute event overnight noted by the RN. Patient denies any chest pain or difficulty breathing. Abdominal pain much improved, off NG tube today and started on clear liquid diet Patient states that she is feeling a lot better today Discussed plan of care at bedside with patient. Objective - Exam Narrative Exam: GENERAL: well-developed and morbidly obese -[place] female lying on bed appeared to be in no discomfort. HEENT: Normocephalic. Atraumatic. No conjunctival congestion or icterus. Patient has moist mucous membranes. NECK: Supple. Trachea midline. CHEST/LUNGS: Clear to auscultated bilaterally, breathing nonlabored. No wheezes crackles or rhonchi. HEART/CARDIOVASCULAR: Regular in rate and rhythm. S1 and S2 positive. ABDOMEN: Abdomen is soft, nontender. Patient has normal bowel sounds. SKIN: There is no rash. Warm and dry. NEURO: No focal motor deficit. Follows command. MUSCULOSKELETAL: No joint effusion or tenderness. EXTRIMITY: No edema, no cyanosis or clubbing. PSYCH: Cooperative. - Constitutional Vitals: Vital Signs - 12hr 09/13/20 09/13/20 09/13/20 05:13 07:13 09:00 Temperature 98.1 F 98.6 F Pulse Rate 90 76 Respiratory 18 16 18 Rate Blood Pressure 123/71 142/83 O2 Sat by Pulse 95 96 Oximetry 09/13/20 11:59 Temperature 97.4 F L Pulse Rate 88 Respiratory 16 Rate Blood Pressure 142/80 O2 Sat by Pulse 98 Oximetry - Labs CBC & Chem 7: 09/09/20 05:02 09/12/20 04:09 Labs: Abnormal lab results 09/12/20 09/12/20 09/13/20 Range/Units 18:39 23:45 05:12 POC Glucose 192 H 141 H 135 H (70-105) mg/dL 09/13/20 Range/Units 11:28 POC Glucose 139 H (70-105) mg/dL
[2020-09-13] MEDS: HYDROmorphone 1 MG/1 ML INJ IV PRN (21:25)
[2020-09-14] MEDS: D5NS W/KCL 20 MEQ 20 MEQ/1,000 ML BAG IV SCH (02:20)
[2020-09-14] MEDS: INSULIN LISPRO 100 UNIT/ML SUB-Q SCH ×4 (04:00→12:01)
[2020-09-14] MEDS: METOCLOPRAMIDE 10 MG/2 ML INJ IV SCH ×2 (04:05→11:48)
[2020-09-14] MEDS: HEPARIN 5,000 UNIT/1 ML VIAL SUB-Q SCH ×2 (06:31→13:28)
[2020-09-14 08:24] VITALS: BP 115/92
[2020-09-14 08:44] LABS: Basophils # (Auto) 0.1 K/mm3 (0.0-0.1); Basophils % (Auto) 1.2 % (0.0-1.8); Eosinophils # (Auto) 0.2 K/mm3 (0.0-0.4); Eosinophils % (Auto) 4.2 % (0.0-4.3); Hematocrit 36.5 % (30.3-42.9); Lymphocytes # (Auto) 1.3 K/mm3 (1.2-5.4); Lymphocytes % (Auto) 27.7 % (13.4-35.0); Mean Corpuscular HGB Conc 33 % (30-34); Mean Corpuscular Volume 93 fl (79-97); Monocytes # (Auto) 0.5 K/mm3 (0.0-0.8); Monocytes % (Auto) 11.9 % (0.0-7.3); Platelet Count 211 K/mm3 (140-440); Red Blood Count 3.95 M/mm3 (3.65-5.03); Red Cell Distribution Width 17.7 % (13.2-15.2)
[2020-09-14 09:01] LABS: Calcium 8.3 mg/dL (8.4-10.2)
[2020-09-14] MEDS: FAMOTIDINE 20 MG/2 ML INJ IV SCH (09:30)
[2020-09-14] MEDS: MORPHINE 2 MG/1 ML INJ IV PRN (09:55)
--- NOTE | 2020-09-14 13:15 | Progress Note ---
Assessment and Plan 60 yo F with abdominal pain, Hx of exlap, EDDIE for SBO on 08/26/[address] Mora Pt clinically stable. Multiple BMs. Pain resolved SBFT - delayed transit of contrast into colon. 20H xray shows contrast to descending colon Plan: 1. continue CLD 2. prn PO pain control 3. May shower, pat incision dry. 4. Patient may be discharged from surgery standpoint with follow up with Dr. Mora as outpatient. Pt instructed to continue CLD with protein supplements for next 3 days, then transition to full liquids for 3-4 days, and then to soft diet. She understands 5. Continue reglan TIDAC for next 7-10 days Thank you, please call with questions. Subjective Date of service: 09/14/20 Narrative: Pt seen and examined. No f/c, n/v. She is having BMs and passing flatus. No abdo arik pain. Tolerating clears. Feels much better and wants to go home Objective Vital Signs - 12hr 09/14/20 09/14/20 09/14/20 06:22 07:30 07:31 Temperature 98.2 F 98 F 98.4 F Pulse Rate 85 77 Respiratory 18 18 12 Rate Blood Pressure 107/77 115/62 Blood Pressure 115/92 [Right] O2 Sat by Pulse 97 99 Oximetry - General physical appearance Narrative Exam: Gen.: Awake, alert, oriented 3. No apparent distress ENT: Trachea midline. No lymphadenopathy. No scleral icterus or conjunctival pallor CV: S1, S2 present Respiratory: No audible wheezes Abdomen: Soft, nondistended, nontender. Midline incision clean, dry, intact with harper in place. All harper removed without difficulty and incision is healed. Extremities: No clubbing, cyanosis, edema - Labs 09/14/20 08:14 09/14/20 08:14 Diabetes panel 09/14/20 Range/Units 08:14 Sodium 137 D (137-145) mmol/L Potassium 3.3 L (3.6-5.0) mmol/L Chloride 102.9 (98-107) mmol/L Carbon Dioxide 26 (22-30) mmol/L BUN 7 (7-17) mg/dL Creatinine 1.3 H (0.6-1.2) mg/dL Glucose 154 H (65-100) mg/dL Calcium 8.3 L (8.4-10.2) mg/dL Calcium panel 09/14/20 Range/Units 08:14 Calcium 8.3 L (8.4-10.2) mg/dL Pituitary panel 09/14/20 Range/Units 08:14 Sodium 137 D (137-145) mmol/L Potassium 3.3 L (3.6-5.0) mmol/L Chloride 102.9 (98-107) mmol/L Carbon Dioxide 26 (22-30) mmol/L BUN 7 (7-17) mg/dL Creatinine 1.3 H (0.6-1.2) mg/dL Glucose 154 H (65-100) mg/dL Calcium 8.3 L (8.4-10.2) mg/dL Adrenal panel 09/14/20 Range/Units 08:14 Sodium 137 D (137-145) mmol/L Potassium 3.3 L (3.6-5.0) mmol/L Chloride 102.9 (98-107) mmol/L Carbon Dioxide 26 (22-30) mmol/L BUN 7 (7-17) mg/dL Creatinine 1.3 H (0.6-1.2) mg/dL Glucose 154 H (65-100) mg/dL Calcium 8.3 L (8.4-10.2) mg/dL
--- NOTE | 2020-09-14 14:36 | Discharge Summary ---
<AMELIA ROSAS - Last Filed: 09/14/20 15:11> Providers - Providers Date of Admission: 09/08/20 19:11 Attending physician: MARGARITO MORILLO 09/08/20 19:12 Consult to Physician [CONS] Routine Comment: Consulting Provider: AMELIA ROSAS Physician Instructions: Reason For Exam: abd pain. sbo Hospitalization Condition: Critical Disposition: DC/TX-70 ANOTHER TYPE HLTHCARE Exam - Constitutional Vitals: Temp Pulse Resp BP Pulse Ox 98.4 F 77 12 115/62 99 09/14/20 07:31 09/14/20 07:30 09/14/20 07:31 09/14/20 07:31 09/14/20 07:30 Plan Activity: other (no heavy lifting for another 3 week, no more than 20 lbs) Weight Bearing Status: Non-Weight Bearing Diet: advance as tolerated (stay on clear liquids for 3 days, then advance to full liquids for 3-4 days, then to soft diet) Wound: per your surgeon's advice (May shower, pat incision dry, do not scrub. Do not submerge in hottub/bath/pool for another 7 days.) Follow up with: LEO LOPEZ [Other] - 7 Days JORGE MORA MD [Staff Physician] - 7 Days Prescriptions: Potassium Chloride [K-Dur] 10 meq PO QDAY #3 tablet Metoclopramide HCl [Reglan TAB] 5 mg PO TIDAC #30 tablet <MARGARITO MORILLO - Last Filed: 09/14/20 15:15> Providers - Providers Date of Admission: 09/08/20 19:11 Date of discharge: 09/14/20 Attending physician: MARGARITO MORILLO 09/08/20 19:12 Consult to Physician [CONS] Routine Comment: Consulting Provider: AMELIA ROSAS Physician Instructions: Reason For Exam: abd pain. sbo Hospitalization Hospital course: This is a 60 yo -[place] morbidly obese female s/p recent admission at [facility] for SBO, s/p exploratory laparotomy and lysis of adhesions on 08/26/[address] Mora and discharged on 09/01/2020. She was readmitted 09/08/2020 through emergency room with abdominal pain, initial work-up in the ED is consistent with small bowel obstruction, evaluated by surgeon, placed NG tube intermittent suction, with significant improvement of symptoms. Patient has been having flatus and bowel movements. Placed on clear liquid diet which she tolerated well. Surgery cleared for discharge and recommended outpatient follow-up. Daily clinical course. 09/09/2020; small bowel obstruction, n.p.o. status NG tube placement, intermittent suction, supportive care 09/10/2020; Patient is having flatus and bowel movements, continue n.p.o. status Hypomagnesemia, hypophosphatemia treated with IV mag self, and IV K-Phos Closely monitor electrolytes, possible removal of NG tube and starting clear liquids tomorrow If patient is stable per surgery 09/11/2020; patient symptoms slightly improved However abdominal x-ray persistent small bowel obstruction Surgery recommend small bowel follow-through, continue n.p.o. status 09/13/19 21; patient continues to have symptoms of small bowel obstruction NG tube with intermittent suction, n.p.o. status, surgery following 09/13: Patient off NG tube today, started on a clear liquid diet. If tolerates clear liquid diet might be able to advance, tomorrow. DC soon when medically stable and cleared by general surgery. 09/14: Patient is tolerating clear liquid diet. No nausea vomiting or abdominal pain. Patient is ambulatory and having bowel movement. Surgery recommended to discharge patient on clear liquid diet with outpatient follow-up. Patient was counseled to advance diet as tolerated and follow-up with surgery in 1 week. Patient verbalized understanding and discharged home in stable condition. Discharge diagnosis and management: -- Small bowel obstruction Status post n.p.o. status, low intermittent suction , IV fluids, supportive care, Surgery consulted Patient is now tolerating clear liquid diet and will advance diet as tolerated as outpatient --Hypophosphatemia and hypokalemia; Supplement and monitored electrolytes --hypomagnesemia Magnesium levels corrected --LA (acute kidney injury) Vasomotor nephropathy , status post gentle IV hydration and improvement --History of HIV Continue antiretrovirals as outpatient -- Hypertension Patient initiated on Catapres patch TTS 3 q. weekly as patient was n.p.o. We will continue current home medications following discharge --Type II IDDM (insulin dependent diabetes mellitus) Managed with Accu-Chek and sliding scale coverage --Morbid obesity ; BMI 41.6 Patient needs dietary modification, exercise as tolerated, , lifestyle changes, and weight reduction when medically stable --Severe malnutrition /hypoalbuminemia albumin 2.9, secondary to underlying disease process Provided supportive care --DVT prophylaxis On heparin and GI prophylaxis Final Discharge Diagnosis (Prints w/discharge instructions): Small bowel obstruction, hypophosphatemia, hypokalemia, hypomagnesemia, LA with vasomotor nephropathy, history of HIV, hypertension, type 2 diabetes mellitus, morbid obesity. Time spent for discharge: 36 minutes Core Measure Documentation - Palliative Care Palliative Care/ Comfort Measures: Not Applicable - Core Measures Any of the following diagnoses?: none Exam - Physical Exam Narrative exam: GENERAL: well-developed and morbidly obese -[place] female lying on bed appeared to be in no discomfort. HEENT: Normocephalic. Atraumatic. No conjunctival congestion or icterus. Patient has moist mucous membranes. NECK: Supple. Trachea midline. CHEST/LUNGS: Clear to auscultated bilaterally, breathing nonlabored. No wheezes crackles or rhonchi. HEART/CARDIOVASCULAR: Regular in rate and rhythm. S1 and S2 positive. ABDOMEN: Abdomen is soft, nontender. Patient has normal bowel sounds. SKIN: There is no rash. Warm and dry. NEURO: No focal motor deficit. Follows command. MUSCULOSKELETAL: No joint effusion or tenderness. EXTRIMITY: No edema, no cyanosis or clubbing. PSYCH: Cooperative. - Constitutional Vitals: Temp Pulse Resp BP Pulse Ox 98.4 F 77 12 115/62 99 09/14/20 07:31 09/14/20 07:30 09/14/20 07:31 09/14/20 07:31 09/14/20 07:30 Plan Activity: advance as tolerated, other Diet: advance as tolerated Wound: per your surgeon's advice Additional Instructions: Advance diet as as tolerated and no weightbearing until seen by Dr. Mora as outpatient. Please come back to the hospital if your symptoms worsen. Repeat BMP in 1 week.
[2020-09-14] MEDS ORDERED: POTASSIUM CHLORIDE ER 10 MEQ TAB PO SCH (15:00)
== END 2020-09-14 16:00 | disposition home health service (06) | DRG 388 ==
LOC: ED 15:22 → 3A 19:11 → 3B-SURG 20:25
PROVIDERS: ADMIT Internal Medicine; ATTEND Internal Medicine
DX: K56.609 Unspecified intestinal obstruction, unspecified as to partial versus complete obstruction (principal); E43 Unspecified severe protein-calorie malnutrition; N17.0 Acute kidney failure with tubular necrosis; K65.1 Peritoneal abscess; Z68.41 Body mass index [BMI] 40.0-44.9, adult; B20 Human immunodeficiency virus [HIV] disease; I11.0 Hypertensive heart disease with heart failure; E11.9 Type 2 diabetes mellitus without complications; E66.01 Morbid (severe) obesity due to excess calories; E83.39 Other disorders of phosphorus metabolism; E83.42 Hypomagnesemia; I50.9 Heart failure, unspecified; I48.91 Unspecified atrial fibrillation; J44.9 Chronic obstructive pulmonary disease, unspecified; I25.10 Atherosclerotic heart disease of native coronary artery without angina pectoris; Z79.899 Other long term (current) drug therapy; Z79.891 Long term (current) use of opiate analgesic; Z79.01 Long term (current) use of anticoagulants; I25.2 Old myocardial infarction; Z95.810 Presence of automatic (implantable) cardiac defibrillator; Z90.49 Acquired absence of other specified parts of digestive tract; Z98.891 History of uterine scar from previous surgery; Z98.51 Tubal ligation status; Z79.4 Long term (current) use of insulin
CPT/HCPCS: 36415; 74018; 74177; 74248; 80048; 80053; 81001; 82140; 82962; 83690; 83735; 84100; 85025; 85610; 85730; G0378; J1170; J1644; J1815; J2270; J2405; J2543; J2765; J3475; J7040; Q9963; Q9967

== ENCOUNTER 2020-11-11 08:12 | Outpatient (CLI) | payer OTHER ==
--- NOTE | 2020-11-11 09:52 | XRay Report ---
RIGHT KNEE 3 VIEWS INDICATION: RIGHT KNEE PAIN. COMPARISON: None. IMPRESSION: No acute osseous or soft tissue abnormality. Minimal tibial spine and retropatellar s purring is identified. No significant joint space narrowing. BILATERAL HIPS WITH PELVIS 3 VIEWS INDICATION: Bilateral hip pain. COMPARISON: None. IMPRESSION: No acute osseous or soft tissue abnormality. No significant DJD. RIGHT SHOULDER 3 VIEWS INDICATION: Right shoulder pain. COMPARISON: None. IMPRESSION: No acute osseous or soft tissue abnormality. Mild acromioclavicular osteoarthritis is identified. Signer Name: Thanh Reeves Jr, MD Signed: 11/11/2020 9:47 AM Workstation Name: [id number]
[2020-11-14 01:02] LABS: CD4/CD8 Ratio 0.95 (0.86-5.00)
== END 2020-11-11 08:13 | disposition home or self-care (01) ==
LOC: XRAY 08:12
PROVIDERS: ATTEND Internal Medicine
DX: M19.011 Primary osteoarthritis, right shoulder (principal); M76.891 Other specified enthesopathies of right lower limb, excluding foot; M25.552 Pain in left hip; M25.551 Pain in right hip; Z02.71 Encounter for disability determination
CPT/HCPCS: 36415; 73521; 82024

== ENCOUNTER 2021-06-22 09:00 | Outpatient (CLI) | payer MEDICARE ==
--- NOTE | 2021-06-22 11:52 | Mammography Report ---
DIGITAL SCREENING MAMMOGRAM WITH CAD, 06/22/2021 CLINICAL INFORMATION / INDICATION: Routine screening mammography. SCREENING MAMMOGRAM TECHNIQUE: Digital bilateral 2D mammography was obtained in the craniocaudal and mediolateral obliqu e projections. This examination was interpreted with the benefit of Computer-Aided Detection analysis . COMPARISON: None available. FINDINGS: Breast Density: There are scattered areas of fibroglandular density. No dominant mass, suspicious calcifications, or architectural distortion in either breast. Left chest wall pacemaker generator. IMPRESSION: No mammographic evidence of malignancy. Follow up recommendation: Routine yearly BI-RADS Category 1: NEGATIVE A "normal" or negative report should not discourage follow up or biopsy of a clinically significant f inding. A written summary of these findings will be mailed to the patient. The patient will be entered into a mammography reporting system which will generate a reminder letter for the patient's next appointmen t at the appropriate interval. The [employer] recommends yearly mammograms starting at age 40 and continuing as l andreea as a woman is in good health. Breast MRI is recommended for women with an approximate 20-25% or greater lifetime risk of breast cancer, including women with a strong family history of breast or ova titus cancer or who have been treated for Hodgkin's disease. Signer Name: Aquilino Duke MD Signed: 06/22/2021 11:47 AM Workstation Name: [id number]
== END 2021-06-22 09:01 | disposition home or self-care (01) ==
LOC: MAMMO 09:00
PROVIDERS: ATTEND Family Medicine
DX: Z12.31 Encounter for screening mammogram for malignant neoplasm of breast (principal); N64.89 Other specified disorders of breast
CPT/HCPCS: 77067

== ENCOUNTER 2021-11-10 08:24 | Day surgery (SDC) | payer MEDICARE ==
[2021-11-10 08:59] VITALS: BP 149/74
== END 2021-11-10 10:15 | disposition home or self-care (01) ==
LOC: CATH 08:24 → CATHLABREC 08:24
PROVIDERS: ATTEND Internal Medicine Cardiovascular Disease
DX: T82.110A Breakdown (mechanical) of cardiac electrode, initial encounter (principal); I12.9 Hypertensive chronic kidney disease with stage 1 through stage 4 chronic kidney disease, or unspecified chronic kidney disease; E11.22 Type 2 diabetes mellitus with diabetic chronic kidney disease; N18.30 Chronic kidney disease, stage 3 unspecified; I25.10 Atherosclerotic heart disease of native coronary artery without angina pectoris; I48.19 Other persistent atrial fibrillation; I27.20 Pulmonary hypertension, unspecified; B20 Human immunodeficiency virus [HIV] disease; Z85.41 Personal history of malignant neoplasm of cervix uteri; Z87.891 Personal history of nicotine dependence; Z79.01 Long term (current) use of anticoagulants; Z87.898 Personal history of other specified conditions; Z95.810 Presence of automatic (implantable) cardiac defibrillator; Z98.890 Other specified postprocedural states; Z85.048 Personal history of other malignant neoplasm of rectum, rectosigmoid junction, and anus; Y82.8 Other medical devices associated with adverse incidents; Y92.89 Other specified places as the place of occurrence of the external cause
CPT/HCPCS: 76000